=== PATIENT | female | born 1990 | race Asian ===

== ENCOUNTER 2020-10-17 21:20 | Emergency (ER) | payer OTHER ==
[2020-10-17] MEDS ORDERED: Sodium Chloride 0.9% 1000 ML 1,000 ML IV STA (21:52)
[2020-10-17] MEDS ORDERED: Sodium Chloride 0.9% 1000 ML 1,000 ML ONE (21:59)
[2020-10-17 22:29] LABS: Appearance SLIGHTLY CLOUDY (CLEAR); Bilirubin NEGATIVE (NEGATIVE); Blood NEGATIVE Ery/ul (0-5); Glucose NEGATIVE (NEGATIVE); Ketones NEGATIVE (NEGATIVE); Leukocyte Esterase NEGATIVE (NEGATIVE); Mucus SLIGHT /HPF (NEGATIVE); Nitrite NEGATIVE (NEGATIVE); Protein,Urine Dip NEGATIVE (Negative); Specific Gravity 1.019 (1.005-1.025); Urobilinogen NEGATIVE mg/dL (0-1); WBC 0-2 /HPF (0-5)
[2020-10-17 22:38] LABS: Absolute Neutrophil Ct (ANC) 8.94 (1.4-6.9); BASOPHIL % 0.3 % (0.0-0.4); Basophil (Absolute #) 0.04 (0-0.4); Eosinophil % 2.2 % (0.00-5.0); Eosinophil (Absolute #) 0.27 (0-0.5); Hematocrit 37.5 % (35-47); Hemoglobin 12.4 gm/dl (12.0-16.0); Lymphocyte (Absolute #) 2.39 (1.0-4.6); Lymphocytes % 19.3 % (24.0-44.0); Mean Cell Volume 86.6 fl (78-100); Mean Corpuscular Hemoglobin 28.6 pg (26-32); Mean Corpuscular Hgb Concent. 33.1 g/dl (32-36); Mean Platelet Volume 10.6 fl (7.5-11.0); Monocyte (Absolute #) 0.73 (0.0-1.3); Monocytes % 5.9 % (0.0-12.0); Neutrophil % 72.3 % (36.0-66.0); Platelet Count 237 K/mm3 (150-450); Red Blood Count 4.33 M/mm3 (4.1-5.4); Red Cell Distribution Width 12.6 % (11.5-14.0); White Blood Count 12.4 K/mm3 (4.0-10.5)
[2020-10-17 22:43] LABS: ALBUMIN 5.1 g/dL (3.5-5.0); ALKALINE PHOSPHATASE 51 U/L (38-126); ANION GAP 17.8 MEQ/L (5-15); BLOOD UREA NITROGEN 14 mg/dL (7-17); CHLORIDE 99 mmol/L (98-107); Carbon Dioxide 22 mmol/L (22-30); Creatinine 1 0.51 mg/dL (0.52-1.04); EST GLOMERULAR FILTRATION RATE > 60.0 ML/MIN; Glucose 87 mg/dL (74-106); Potassium 3.8 mmol/L (3.5-5.1); SGOT/AST 31 U/L (14-36); SGPT/ALT 28 U/L (0-35); SODIUM 135 mmol/L (137-145)
--- NOTE | 2020-10-17 23:14 | ERPHSYRPT ---
- History of Present Illness Time Seen by Provider: 10/17/20 21:30 Source: patient Exam Limitations: no limitations Patient Subjective Stated Complaint: "I'm having cramping and bloody discharge." Triage Nursing Assessment: Patient reported that she is roughly 14 weeks . This is her first . Her first OB appointment is the with Dr. Pendleton. The patient reported sharp right sided pelvic pain with spotting. Denied any pain today. Denied nausea, vomiting, or diarrhea. She reported having a right sided headache. pupils 3mm brisk direct consensual reaction to light. Symmetrical chest expansion. heart tones S1/S2 regular rate and rhythm. Lungs vesicular. Abdomen with normoactive bowel sounds. Abdomen non-distended non-tender without guarding. Physician History: 30 years old 1 para 0 at almost 14 weeks gestation per LMP presented in the ER with chief complaint of vaginal bleeding/spotting off and on since yesterday. Patient reports having right-sided pelvic pain yesterday dull aching to sharp moderate intensity which improved on its on after few hours. Does not have any pelvic or abdominal pain today. She noticed few small clots this afternoon with some bloody tinged discharge. Denies any pelvic cramping are low back pain. Does have increased urinary frequency but denies urgency or dysuria. Denies any recent fever or chills. Patient denies any recent sexual activity. Reports having ultrasound done 4 to 6 weeks ago but is not sure what it did show as it was done in [place] and now recently she moved here. She is going to follow-up with Dr. Pendleton next week. Timing/Duration: yesterday, resolved prior to arrival Activites at Onset: rest Sexual intercourse history: non-contributory Modifying Factors: Improves With: nothing Associated Symptoms: urinary frequency, , vaginal discharge Allergies/Adverse Reactions: No Known Drug Allergies Allergy (Unverified 10/17/20 21:36) Home Medications: No Reportable Medications [No Reported Medications] 10/17/20 [History] Hx Tetanus, Diphtheria Vaccination/Date Given: No Hx Influenza Vaccination/Date Given: Yes Travel Risk - International Travel Have you traveled outside of the country in past 3 weeks: No - Coronavirus Screening Are you exhibiting any of the following symptoms?: No Close contact with a COVID-19 positive Pt in past 14-21 Days: No - Vaccine Status Have you recieved a Covid-19 vaccination: No - Review of Systems Constitutional: No Symptoms Eyes: No Symptoms Ears, Nose, & Throat: No Symptoms Respiratory: No Symptoms Cardiac: No Symptoms Abdominal/Gastrointestinal: No Symptoms Genitourinary Symptoms: Vaginal Bleeding, Vaginal Discharge Musculoskeletal: No Symptoms Skin: No Symptoms Neurological: No Symptoms Psychological: No Symptoms Endocrine: No Symptoms Hematologic/Lymphatic: No Symptoms Immunological/Allergic: No Symptoms - Past Medical History Pertinent Past Medical History: No - Past Surgical History Past Surgical History: No - Social History Smoking Status: Never smoker Exposure to second hand smoke: No Drug Use: none Patient Lives Alone: No - Female History Hx Last Menstrual Period: 07/10/20 Hx Now: Yes - Nursing Vital Signs Nursing Vital Signs: Initial Vital Signs Temperature 98.4 F 10/17/20 21:23 Pulse Rate 98 H 10/17/20 21:23 Respiratory Rate 16 10/17/20 21:23 Blood Pressure 126/71 10/17/20 21:23 O2 Sat by Pulse Oximetry 100 10/17/20 21:23 Pain Scale Pain Intensity 0 - Physical Exam General Appearance: no apparent distress, alert Eye Exam: PERRL/EOMI, eyes nml inspection Ears, Nose, Throat Exam: normal ENT inspection, TMs normal, pharynx normal Neck Exam: normal inspection, non-tender, supple, full range of motion Respiratory Exam: normal breath sounds, lungs clear Cardiovascular Exam: regular rate/rhythm, normal heart sounds Gastrointestinal/Abdomen Exam: soft, normal bowel sounds, tenderness (Minimal suprapubic tenderness.), other (No right lower quadrant tenderness.), No distention, No guarding, No rebound Back Exam: normal inspection, normal range of motion Extremity Exam: normal inspection, normal range of motion Neurologic Exam: alert, oriented x 3, cooperative Skin Exam: normal color SpO2 Interpretation: normal SpO2: 98 O2 Delivery: Room Air Ordered Tests: Active Orders 24 hr Category Date Time Status IV Insertion STAT Care 10/17/20 21:52 Active OB >14 WKS 1st GESTATION [US] Stat Exams 10/17/20 21:53 Taken CBC W DIFF Stat Lab 10/17/20 22:15 Completed CMP Stat Lab 10/17/20 22:15 Completed UA W/RFX UR CULTURE Stat Lab 10/17/20 21:53 Completed Wet Prep Stat Lab 10/17/20 22:17 Received Medication Summary Discontinued Medications Generic Name Dose Route Start Last Admin Trade Name Armida PRN Reason Stop Dose Admin Sodium Chloride 1,000 mls @ 999 mls/hr 10/17/20 21:52 10/17/20 22:00 Sodium Chloride 0.9% 1000 Ml IV 10/17/20 22:52 999 mls/hr .Q1H1M STA Administration Sodium Chloride Confirm 10/17/20 21:59 Sodium Chloride 0.9% 1000 Ml Administered 10/17/20 22:00 Dose 1,000 mls @ ud .ROUTE .STK-MED ONE Lab/Rad Data: Laboratory Result Diagrams 10/17/20 22:15 10/17/20 22:15 Laboratory Results 10/17/20 10/17/20 10/17/20 Range/Units 22:15 22:15 21:53 WBC 12.4 H (4.0-10.5) K/mm3 RBC 4.33 (4.1-5.4) M/mm3 Hgb 12.4 (12.0-16.0) gm/dl Hct 37.5 (35-47) % MCV 86.6 (78-100) fl MCH 28.6 (26-32) pg MCHC 33.1 (32-36) g/dl RDW 12.6 (11.5-14.0) % Plt Count 237 (150-450) K/mm3 MPV 10.6 (7.5-11.0) fl Gran % 72.3 H (36.0-66.0) % Eos # (Auto) 0.27 (0-0.5) Absolute Lymphs (auto) 2.39 (1.0-4.6) Absolute Monos (auto) 0.73 (0.0-1.3) Lymphocytes % 19.3 L (24.0-44.0) % Monocytes % 5.9 (0.0-12.0) % Eosinophils % 2.2 (0.00-5.0) % Basophils % 0.3 (0.0-0.4) % Absolute Granulocytes 8.94 H (1.4-6.9) Basophils # 0.04 (0-0.4) Sodium 135 L (137-145) mmol/L Potassium 3.8 (3.5-5.1) mmol/L Chloride 99 (98-107) mmol/L Carbon Dioxide 22 (22-30) mmol/L Anion Gap 17.8 H (5-15) MEQ/L BUN 14 (7-17) mg/dL Creatinine 0.51 L (0.52-1.04) mg/dL Estimated GFR > 60.0 ML/MIN Glucose 87 (74-106) mg/dL Calcium 10.0 (8.4-10.2) mg/dL Total Bilirubin 0.20 (0.2-1.3) mg/dL AST 31 (14-36) U/L ALT 28 (0-35) U/L Alkaline Phosphatase 51 (38-126) U/L Serum Total Protein 9.0 H (6.3-8.2) g/dL Albumin 5.1 H (3.5-5.0) g/dL Urine Color YELLOW (YELLOW) Urine Appearance SLIGHTLY CLOUDY (CLEAR) Urine pH 8.0 (5-6) Ur Specific [place] 1.019 (1.005-1.025) Urine Protein NEGATIVE (Negative) Urine Ketones NEGATIVE (NEGATIVE) Urine Blood NEGATIVE (0-5) Pramod/ul Urine Nitrite NEGATIVE (NEGATIVE) Urine Bilirubin NEGATIVE (NEGATIVE) Urine Urobilinogen NEGATIVE (0-1) mg/dL Ur Leukocyte Esterase NEGATIVE (NEGATIVE) Urine WBC (Auto) 0-2 (0-5) /HPF Urine RBC (Auto) NONE (0-2) /HPF U Epithel Cells (Auto) NONE (FEW) /HPF Urine Mucus (Auto) SLIGHT (NEGATIVE) /HPF Urine Culture Reflexed NO (NO) Urine Glucose NEGATIVE (NEGATIVE) mg/dL - Progress Progress: improved Air Movement: good Progress Note: 10/17/20 23:12 She is given fluid bolus, on reevaluation feeling much better. She has a white count of 12, mildly elevated gap and no UTI. Type and screen O+ with negative antibody screen. Ultrasound showed single IUP with good heart tone and no perichorionic hemorrhage, placenta had good place and no other acute findings per preliminary report, official report is pending. Patient is not complaining of any pain on reevaluation. She is thoroughly counseled and recommended outpatient OB follow-up as scheduled. Discussed signs symptoms of worsening needing return to ER which she seemed understanding Blood Culture(s) Obtained: No Antibiotics given: No Counseled pt/family regarding: lab results, diagnosis, need for follow-up, rad results - Departure Departure Disposition: Home Clinical Impression: Vaginal bleeding affecting early Condition: Stable Critical Care Time: No Referrals: CRISTIN PENLDETON MD [Primary Care Provider] - Follow Up with PCP/3 days Instructions: Bleeding With (DC) Additional Instructions: Follow-up with your primary OB for reevaluation early next week. Drink plenty of fluids. Continue with vitamins. Return to ER for worsening bleeding, cramping, discharge, low back pain. Pelvic rest.
[2020-10-17 23:16] LABS: ABO TYPING O; Antibody Screen NEGATIVE (NEGATIVE); RH TYPING POSITIVE
[2020-10-17 23:25] LABS: Bacteria Moderate; Clue Cells Rare; Red Blood Cells None Seen; Trichomonas None Seen; White Blood Cells Moderate; Yeast None Seen
[2020-10-17 23:33] VITALS: BP 112/72; PULSE 68; O2SAT 99
[2020-10-17 23:56] LABS: CHLAMYDIA DNA NOT DETECTED (NEGATIVE); GC DNA Probe NOT DETECTED (NEGATIVE)
--- NOTE | 2020-10-18 07:48 | XRAY ---
Indication: Right-sided pain. Spotting. Two-dimensional OB ultrasound performed. Comparison: None There is a single intrauterine with mean crown-rump length 7.75 cm corresponding to 13 weeks 6 days. heart rate 173 BPM. No suspicious subchorionic fluid collection. Neither ovaries visualized. No suspicious adnexal mass or free fluid. BPD measures 2.74 cm corresponding to 14 weeks 6 days. HC measures 9.15 cm corresponding to 14 weeks 1 day. AC measures 7.67 cm corresponding to 14 weeks 1 day. FL measures 1.03 cm corresponding to 13 weeks 0 days. Impression: Single viable intrauterine with mean gestational age 14 weeks 0 days. Expected date confinement is April 17, 2021. No acute findings. Comment: Preliminary report was given.
== END 2020-10-17 23:26 | disposition home or self-care (01) ==
LOC: EDBD 21:20 → ED 21:20
DX: O20.9 Hemorrhage in early pregnancy, unspecified (principal); Z3A.14 14 weeks gestation of pregnancy
CPT/HCPCS: 36000; 36415; 76805; 80053; 81001; 85025; 86850; 86900; 86901; 87210; 87491; 87591; 96360; 99284

== ENCOUNTER 2021-04-02 08:34 | Inpatient (IN) | payer OTHER ==
[2021-04-02] MEDS ORDERED: Lactated Ringers 1,000 ML IV ONE ×3 (09:22→15:54)
[2021-04-02] MEDS ORDERED: OB EPIDURAL NAROPIN/SUFENTANIL IN NACL EPIDURAL PRN (09:33)
[2021-04-02] MEDS ORDERED: Ephedrine Sulfate 50 MG/ML IV PRN (09:33)
[2021-04-02] MEDS ORDERED: XYLOCAINE 1% HCL 20 ML MDV IJ PRN (09:34)
[2021-04-02] MEDS ORDERED: Zofran 4 MG/2 ML VIAL IV PRN (09:34)
[2021-04-02] MEDS ORDERED: PITOCIN 30 UNITS/ LR 500 ML 30 UNITS/500 ML PLAST..BAG IV SCH (10:00)
[2021-04-02 10:01] LABS: Hematocrit 38.4 % (35-47); Hemoglobin 12.8 gm/dl (12.0-16.0); Mean Cell Volume 90.6 fl (78-100); Mean Corpuscular Hemoglobin 30.2 pg (26-32); Mean Corpuscular Hgb Concent. 33.3 g/dl (32-36); Mean Platelet Volume 11.6 fl (7.5-11.0); Platelet Count 181 K/mm3 (150-450); Red Blood Count 4.24 M/mm3 (4.1-5.4); Red Cell Distribution Width 14.5 % (11.5-14.0)
[2021-04-02 10:06] LABS: White Blood Count 25.4 K/mm3 (4.0-10.5)
[2021-04-02 10:14] LABS: Amphetamine,Urine NEGATIVE (NEGATIVE); Barbiturate,Urine NEGATIVE (NEGATIVE); Benzodiazepine,Urine NEGATIVE (NEGATIVE); Cocaine,Urine NEGATIVE (NEGATIVE); Methadone,Urine NEGATIVE (NEGATIVE); Opiate,Urine NEGATIVE (NEGATIVE); PCP,Urine NEGATIVE (NEGATIVE); THC,Urine NEGATIVE (NEGATIVE)
[2021-04-02] MEDS: Lactated Ringers 1,000 ML IV ONE ×2 (10:24→10:25)
[2021-04-02 11:55] LABS: Appearance CLEAR (CLEAR); Bilirubin NEGATIVE (NEGATIVE); Blood SMALL Ery/ul (0-5); Glucose NEGATIVE (NEGATIVE); Ketones MODERATE (NEGATIVE); Leukocyte Esterase NEGATIVE (NEGATIVE); Mucus SLIGHT /HPF (NEGATIVE); Nitrite NEGATIVE (NEGATIVE); Protein,Urine Dip 100 (Negative); Specific Gravity 1.017 (1.005-1.025); Urobilinogen NEGATIVE mg/dL (0-1)
[2021-04-02 11:57] LABS: Bacteria NONE SEEN /HPF (NEGATIVE)
[2021-04-02] MEDS ORDERED: Pepcid 20 MG VIAL IV SCH (13:45)
[2021-04-02] MEDS ORDERED: SOD CITRATE-CITRIC ACID SOLN PO SCH (13:45)
[2021-04-02] MEDS ORDERED: Reglan 10 MG/2 ML IV SCH (13:45)
[2021-04-02 13:50] LABS: INR 0.89 (0.8-3.0); PROTIME 10.5 SECONDS (9.4-12.5)
[2021-04-02 13:52] LABS: PTT 28.7 SECONDS (25.1-36.5)
[2021-04-02] MEDS ORDERED: CEFAZOLIN 2 GM-D5W BAG** 2 GM/50 ML ML IV SCH (14:00)
[2021-04-02] MEDS ORDERED: XYLOCAINE 2%/Epi 1:200000 20ML VIAL MPF ONE (14:23)
[2021-04-02] MEDS ORDERED: Lactated Ringers 2,000 ML IV ONE (14:24)
[2021-04-02] MEDS ORDERED: PHENYLEPHRINE HCL ONE (14:37)
[2021-04-02] MEDS ORDERED: Pitocin 10 UNITS/ML ONE ×2 (14:48→14:55)
[2021-04-02] MEDS ORDERED: Astramorph-Pf 5 MG/10 ML ONE (14:55)
[2021-04-02] MEDS ORDERED: Naropin 0.5% 30 ML VIAL ONE (15:15)
[2021-04-02] MEDS ORDERED: Marcaine 0.5%/Epinephrine 10 ML ONE (15:16)
[2021-04-02] MEDS ORDERED: STERILE WATER FOR INJECTION IV SCH (16:00)
[2021-04-02] MEDS ORDERED: OMNIPEN IV SCH (16:00)
[2021-04-02] MEDS ORDERED: GENTAMICIN IV SCH (16:00)
[2021-04-02] MEDS ORDERED: MOTRIN 600 MG PO PRN (16:19)
[2021-04-02] MEDS ORDERED: Lactated Ringers 1,000 ML IV SCH (16:30)
[2021-04-02 16:44] LABS: INFLUENZA A NEGATIVE (NEGATIVE); INFLUENZA B NEGATIVE (NEGATIVE); RESPIRATORY SYNCTIAL VIRUS NEGATIVE (Negative); SARS-CoV-2 Xpert Express NEGATIVE (NEGATIVE)
[2021-04-02] MEDS ORDERED: MOTRIN 400 MG PO PRN (18:30)
[2021-04-02] MEDS ORDERED: CORTISONE 1% CREAM TP PRN (18:30)
[2021-04-02] MEDS ORDERED: Mylicon 80MG PO PRN (18:30)
[2021-04-02] MEDS ORDERED: NORCO 5/325 MG PO PRN (18:30)
[2021-04-02] MEDS ORDERED: Dextrose 5%-Lr IV Solution 1000 ML 1,000 ML IV SCH (18:30)
[2021-04-02] MEDS ORDERED: Anucort-HC SUPPOSITORY PR PRN (18:30)
[2021-04-02] MEDS ORDERED: BENADRYL 50 MG/ML IV PRN (18:33)
[2021-04-02] MEDS ORDERED: HOLD NARCOTIC ANALGESICS AND SEDATIVES X24 HR MC PRN (18:33)
[2021-04-02] MEDS ORDERED: Nubain 10 MG/ML IV PRN (18:33)
[2021-04-02] MEDS ORDERED: Narcan 0.4 MG/ML IV PRN (18:33)
[2021-04-02] MEDS ORDERED: MORPHINE SULFATE 2 MG INJ IV PRN (18:33)
[2021-04-02] MEDS ORDERED: PERCOCET TABLET 5/325MG PO PRN (18:33)
[2021-04-02] MEDS ORDERED: DEMEROL 50 MG IV PRN (18:33)
[2021-04-02] MEDS: Unasyn 3 GM Vial*** 3 G in Sodium Chloride 100ML MINI-BAG PLUS 100 ML IV SCH ×2 (18:46→23:49)
[2021-04-02] MEDS: Colace 100 MG PO SCH (21:55)
[2021-04-02 22:17] LABS: ABO TYPING O; RH TYPING POSITIVE
[2021-04-02 22:18] LABS: Antibody Screen NEGATIVE (NEGATIVE)
[2021-04-03] MEDS: TYLENOL 325 MG PO PRN ×3 (03:55→23:52)
[2021-04-03] MEDS: Unasyn 3 GM Vial*** 3 G in Sodium Chloride 100ML MINI-BAG PLUS 100 ML IV SCH ×4 (04:55→23:12)
[2021-04-03 06:42] LABS: Hematocrit 31.2 % (35-47); Hemoglobin 10.2 gm/dl (12.0-16.0); Mean Cell Volume 92.9 fl (78-100); Mean Corpuscular Hemoglobin 30.4 pg (26-32); Mean Corpuscular Hgb Concent. 32.7 g/dl (32-36); Mean Platelet Volume 11.9 fl (7.5-11.0); Platelet Count 135 K/mm3 (150-450); Red Blood Count 3.36 M/mm3 (4.1-5.4); Red Cell Distribution Width 14.7 % (11.5-14.0); White Blood Count 19.2 K/mm3 (4.0-10.5)
[2021-04-03 08:07] LABS: BAND 2 % (0.0-2.0); Lymphocytes 12 % (24-44); Monocyte 6 % (0.0-12.0); Neutrophils 80 % (36.0-66.0); Total Cells Counted 100
--- NOTE | 2021-04-03 08:07 | XRAY ---
Indication: Fever. Pneumonia. Comparison: None Portable chest is clear. Heart and mediastinal structures within normal limits. Bony thorax intact. Impression: Nonacute chest. Comment: Preliminary interpretation made by [facility]. No critical discrepancy.
[2021-04-03 08:08] LABS: Platelet Estimate NORMAL (NORMAL)
[2021-04-03] MEDS: Colace 100 MG PO SCH ×2 (09:48→22:09)
[2021-04-03] MEDS: FERREX 150 PO SCH (09:48)
--- NOTE | 2021-04-03 10:21 | PCM.NOTE ---
Date and Time: 04/03/21 1019 Subjective Assessment: pain is well controlled, bleeding is scant. patient is ambulatory and tolerating po. has not ran any fever overnight. Objective Exam General Appearance: no apparent distress, alert Skin Exam: normal color, warm, dry Respiratory Exam: normal breath sounds, lungs clear, No respiratory distress Cardiovascular Exam: regular rate/rhythm, normal heart sounds Gastrointestinal/Abdomen Exam: soft, other (incision clean, dry, intact and well approximated), No tenderness, No mass Extremity Exam: normal inspection, normal range of motion OBJECTIVE DATA Vital Signs: Vital Signs - 24 hr Temp Pulse Resp BP BP Pulse Ox 04/03/21 04:00 98.6 F 101 H 20 127/75 04/03/21 00:42 98.9 F 20 04/02/21 23:45 98.5 F 110 H 20 142/67 04/02/21 20:00 99 F 113 H 20 131/65 98 04/02/21 18:30 99.1 F 109 H 18 126/65 95 04/02/21 18:00 99.1 F 113 H 16 130/69 97 04/02/21 17:30 99.1 F 122 H 18 131/74 96 04/02/21 17:15 99.1 F 114 H 18 129/65 97 04/02/21 16:45 114 H 16 125/56 98 04/02/21 16:30 101.7 F 123 H 18 125/56 97 04/02/21 14:30 101.7 F 113 H 16 97 04/02/21 14:22 101.0 F 107 H 20 136/91 100 04/02/21 14:15 101.7 F 139 H 16 142/75 97 04/02/21 14:06 101.0 F 107 H 20 127/69 100 04/02/21 13:30 100.3 F 107 H 16 127/69 97 04/02/21 13:15 100.3 F 109 H 18 128/69 97 04/02/21 13:00 100.3 F 101 H 16 138/74 04/02/21 12:30 100.3 F 108 H 18 136/91 04/02/21 12:22 99.1 F 108 H 20 136/91 100 04/02/21 12:15 99.1 F 114 H 16 143/86 97 04/02/21 12:00 99.1 F 100 H 16 150/67 100 04/02/21 11:30 99.1 F 101 H 18 106/55 100 04/02/21 11:00 99.1 F 96 H 18 109/49 100 04/02/21 10:30 98.6 F 105 H 18 134/77 97 Pain Assessment - Last Documented Pain Intensity [Bilateral 0 Lower] Pain Intensity 6 Pain Scale Used 0-10 Pain Scale Intake and Output: Intake & Output 03/31/21 04/01/21 04/02/21 04/03/21 11:59 11:59 11:59 11:59 Intake Total 6500 Output Total 7200 Balance -700 Weight 62.596 kg 62.596 kg Lab Results: Lab Results-Last 24 Hours 04/02/21 04/02/21 04/02/21 Range/Units 09:50 10:00 11:30 WBC (4.0-10.5) K/mm3 RBC (4.1-5.4) M/mm3 Hgb (12.0-16.0) gm/dl Hct (35-47) % MCV (78-100) fl MCH (26-32) pg MCHC (32-36) g/dl RDW (11.5-14.0) % Plt Count (150-450) K/mm3 MPV (7.5-11.0) fl Segmented Neutrophils (36.0-66.0) % Band Neutrophils (0.0-2.0) % Lymphocytes (Manual) (24-44) % Monocytes (Manual) (0.0-12.0) % Platelet Estimate (NORMAL) RBC Morphology PT 10.5 (9.4-12.5) SECONDS INR 0.89 (0.8-3.0) APTT 28.7 (25.1-36.5) SECONDS POC Glucometer (74 to 106) mg/dL Urine Color YELLOW (YELLOW) Urine Appearance CLEAR (CLEAR) Urine pH 7.0 (5-6) Ur Specific [place] 1.017 (1.005-1.025) Urine Protein 100 (Negative) Urine Ketones MODERATE (NEGATIVE) Urine Blood SMALL (0-5) Pramod/ul Urine Nitrite NEGATIVE (NEGATIVE) Urine Bilirubin NEGATIVE (NEGATIVE) Urine Urobilinogen NEGATIVE (0-1) mg/dL Ur Leukocyte Esterase NEGATIVE (NEGATIVE) Urine WBC (Auto) 3-5 (0-5) /HPF Urine RBC (Auto) 16-25 (0-2) /HPF U Epithel Cells (Auto) NONE (FEW) /HPF Urine Bacteria (Auto) NONE SEEN (NEGATIVE) /HPF Urine Mucus (Auto) SLIGHT (NEGATIVE) /HPF Urine Culture Reflexed YES (NO) Urine Glucose NEGATIVE (NEGATIVE) mg/dL Influenza Type A Ag (NEGATIVE) Influenza Type B Ag (NEGATIVE) RSV (PCR) (Negative) SARS-CoV-2 (PCR) (NEGATIVE) Slides for Path Review ABO Group Rh Factor Antibody Screen (NEGATIVE) 04/02/21 04/02/21 04/02/21 Range/Units 14:14 15:10 16:00 WBC (4.0-10.5) K/mm3 RBC (4.1-5.4) M/mm3 Hgb (12.0-16.0) gm/dl Hct (35-47) % MCV (78-100) fl MCH (26-32) pg MCHC (32-36) g/dl RDW (11.5-14.0) % Plt Count (150-450) K/mm3 MPV (7.5-11.0) fl Segmented Neutrophils (36.0-66.0) % Band Neutrophils (0.0-2.0) % Lymphocytes (Manual) (24-44) % Monocytes (Manual) (0.0-12.0) % Platelet Estimate (NORMAL) RBC Morphology PT (9.4-12.5) SECONDS INR (0.8-3.0) APTT (25.1-36.5) SECONDS POC Glucometer 117 H (74 to 106) mg/dL Urine Color (YELLOW) Urine Appearance (CLEAR) Urine pH (5-6) Ur Specific [place] (1.005-1.025) Urine Protein (Negative) Urine Ketones (NEGATIVE) Urine Blood (0-5) Pramod/ul Urine Nitrite (NEGATIVE) Urine Bilirubin (NEGATIVE) Urine Urobilinogen (0-1) mg/dL Ur Leukocyte Esterase (NEGATIVE) Urine WBC (Auto) (0-5) /HPF Urine RBC (Auto) (0-2) /HPF U Epithel Cells (Auto) (FEW) /HPF Urine Bacteria (Auto) (NEGATIVE) /HPF Urine Mucus (Auto) (NEGATIVE) /HPF Urine Culture Reflexed (NO) Urine Glucose (NEGATIVE) mg/dL Influenza Type A Ag NEGATIVE (NEGATIVE) Influenza Type B Ag NEGATIVE (NEGATIVE) RSV (PCR) NEGATIVE (Negative) SARS-CoV-2 (PCR) NEGATIVE (NEGATIVE) Slides for Path Review ABO Group O Rh Factor POSITIVE Antibody Screen NEGATIVE (NEGATIVE) 04/03/21 Range/Units 06:10 WBC 19.2 H (4.0-10.5) K/mm3 RBC 3.36 L (4.1-5.4) M/mm3 Hgb 10.2 L D (12.0-16.0) gm/dl Hct 31.2 L (35-47) % MCV 92.9 (78-100) fl MCH 30.4 (26-32) pg MCHC 32.7 (32-36) g/dl RDW 14.7 H (11.5-14.0) % Plt Count 135 L (150-450) K/mm3 MPV 11.9 H (7.5-11.0) fl Segmented Neutrophils 80 H (36.0-66.0) % Band Neutrophils 2 (0.0-2.0) % Lymphocytes (Manual) 12 L (24-44) % Monocytes (Manual) 6 (0.0-12.0) % Platelet Estimate NORMAL (NORMAL) RBC Morphology NORMAL PT (9.4-12.5) SECONDS INR (0.8-3.0) APTT (25.1-36.5) SECONDS POC Glucometer (74 to 106) mg/dL Urine Color (YELLOW) Urine Appearance (CLEAR) Urine pH (5-6) Ur Specific [place] (1.005-1.025) Urine Protein (Negative) Urine Ketones (NEGATIVE) Urine Blood (0-5) Pramod/ul Urine Nitrite (NEGATIVE) Urine Bilirubin (NEGATIVE) Urine Urobilinogen (0-1) mg/dL Ur Leukocyte Esterase (NEGATIVE) Urine WBC (Auto) (0-5) /HPF Urine RBC (Auto) (0-2) /HPF U Epithel Cells (Auto) (FEW) /HPF Urine Bacteria (Auto) (NEGATIVE) /HPF Urine Mucus (Auto) (NEGATIVE) /HPF Urine Culture Reflexed (NO) Urine Glucose (NEGATIVE) mg/dL Influenza Type A Ag (NEGATIVE) Influenza Type B Ag (NEGATIVE) RSV (PCR) (Negative) SARS-CoV-2 (PCR) (NEGATIVE) Slides for Path Review ABO Group Rh Factor Antibody Screen (NEGATIVE) Radiology Exams: Radiology Procedures Category Date Time Status CHEST 1 VIEW (PORTABLE) Stat Exams 04/02/21 16:59 Completed Multi-Disciplinary Progress Notes: Multi-Disciplinary Progress Notes 04/02/21 14:53 (created 04/02/21 16:53) Respiratory Note by Stephanie Boucher The baby was born at 1453. Baby limp and dusky upon . Baby is breathing. HR is good. at . Baby is stimulated dried and given blowby O2. baby stil limp baby given cpap via bernadette t with O2. Baby continues to be limp. HR continues to remain stable at 214. Baby given PPV.. for approximately 5 minutes and patient begins to move around a pink up some. Patient begins to have a little more muscle tone while IV is trying to be started by RN and CEMENT TESTER ASSISTANT. Baby continues to be given PPV via Bernadette T. after approximately 20 minutes the baby is much more active and looking around and pinking up along with better muscle tone. Baby taken to nursery and is looking around color much better at this time. Switched baby to 2lpm per NC with FiO2 28%. HR 186 RR 70 Patient decreased to 21% FiO2 and 2lpm HR 153 O2 sat 94%. . Initialized on 04/02/21 16:53 - END OF NOTE Assessment/Plan (1) delivery delivered Current Visit: Yes Status: Acute Code(s): O82 - ENCOUNTER FOR DELIVERY WITHOUT INDICATION (2) Fever of unknown origin (FUO) Current Visit: Yes Status: Acute Assessment & Plan: covid and flu negative, u/a and chest xray are clear. blood and urine cultures are pending. continue unasyn emperically, wbc trending down and patient appears well and afebrile
[2021-04-04] MEDS: TYLENOL 325 MG PO PRN (05:54)
[2021-04-04 07:10] LABS: Hematocrit 30.9 % (35-47); Hemoglobin 9.8 gm/dl (12.0-16.0); Mean Cell Volume 93.9 fl (78-100); Mean Corpuscular Hemoglobin 29.8 pg (26-32); Mean Corpuscular Hgb Concent. 31.7 g/dl (32-36); Mean Platelet Volume 10.9 fl (7.5-11.0); Platelet Count 166 K/mm3 (150-450); Red Blood Count 3.29 M/mm3 (4.1-5.4); Red Cell Distribution Width 14.9 % (11.5-14.0); White Blood Count 18.5 K/mm3 (4.0-10.5)
[2021-04-04 07:27] LABS: ANION GAP 9.2 MEQ/L (5-15); BLOOD UREA NITROGEN 8 mg/dL (7-17); CHLORIDE 106 mmol/L (98-107); Calcium 8.4 mg/dL (8.4-10.2); Carbon Dioxide 23 mmol/L (22-30); Creatinine 1 0.54 mg/dL (0.52-1.04); EST GLOMERULAR FILTRATION RATE > 60.0 ML/MIN; Glucose 71 mg/dL (74-106); Potassium 3.8 mmol/L (3.5-5.1); SODIUM 134 mmol/L (137-145)
[2021-04-04 08:36] LABS: ANISOCYTOSIS 1+; BAND 1 % (0.0-2.0); Eosinophil 1 % (0.00-3.0); Lymphocytes 15 % (24-44); Monocyte 5 % (0.0-12.0); Neutrophils 78 % (36.0-66.0); Platelet Estimate NORMAL (NORMAL); Total Cells Counted 100
--- NOTE | 2021-04-04 09:25 | PCM.DS ---
Discharge Summary Date of Admission: 04/02/21 08:34 Admitting Physician: CRISTIN PENDLETON Consults: Consults on Case 04/02/21 13:40 Notify Physician OF ADMISSION 04/02/21 18:33 Notify Anesthesia Provider PRN Primary Care Provider: CRISTIN PENDLETON Allergies Allergies No Known Drug Allergies Allergy (Unverified 12/09/20 11:12) Hospital Summary - Hospital Course Hospital Course: patient had primary on 04/02 with nonreassuing heart tones, developed a high fever postop of unknown origin. chest xray and ua were negative. blood and urine cultures negative. flu and covid swab negative. she has been afebrile since after surgery. tolerating po, was on unasyn, wbc initially 25,000 trending down as well. patient has done great post-op with mild lochia, tolerating po and ambulating with no difficulty. - Vitals & Intake/Output Vital Signs: Vital Signs Temperature 98.1 F 04/03/21 23:18 Pulse Rate 93 H 04/03/21 23:18 Respiratory Rate 18 04/03/21 23:18 Blood Pressure 116/64 04/03/21 23:18 O2 Sat by Pulse Oximetry 98 04/02/21 20:00 Intake & Output: Intake & Output 04/01/21 04/02/21 04/03/21 04/04/21 11:59 11:59 11:59 11:59 Intake Total 6500 3600 Output Total 7200 Balance -700 3600 Weight 62.596 kg 62.596 kg - Lab Result Diagrams: 04/04/21 06:44 04/04/21 06:44 Lab Results-Last 24 Hrs: Lab Results-Last 24 Hours 04/04/21 04/04/21 Range/Units 06:44 06:44 WBC 18.5 H (4.0-10.5) K/mm3 RBC 3.29 L (4.1-5.4) M/mm3 Hgb 9.8 L (12.0-16.0) gm/dl Hct 30.9 L (35-47) % MCV 93.9 (78-100) fl MCH 29.8 (26-32) pg MCHC 31.7 L (32-36) g/dl RDW 14.9 H (11.5-14.0) % Plt Count 166 (150-450) K/mm3 MPV 10.9 (7.5-11.0) fl Segmented Neutrophils 78 H (36.0-66.0) % Band Neutrophils 1 (0.0-2.0) % Lymphocytes (Manual) 15 L (24-44) % Monocytes (Manual) 5 (0.0-12.0) % Eosinophils (Manual) 1 (0.00-3.0) % Platelet Estimate NORMAL (NORMAL) RBC Morphology ABNORMAL Anisocytosis 1+ Sodium 134 L (137-145) mmol/L Potassium 3.8 (3.5-5.1) mmol/L Chloride 106 (98-107) mmol/L Carbon Dioxide 23 (22-30) mmol/L Anion Gap 9.2 (5-15) MEQ/L BUN 8 (7-17) mg/dL Creatinine 0.54 (0.52-1.04) mg/dL Estimated GFR > 60.0 ML/MIN Glucose 71 L (74-106) mg/dL Calcium 8.4 (8.4-10.2) mg/dL Micro Results-Entire Visit: Microbiology 04/02/21 16:10 Blood Culture - Preliminary Blood NO GROWTH TO DATE 04/02/21 16:05 Blood Culture - Preliminary Blood NO GROWTH TO DATE 04/02/21 11:30 Urine Culture - Preliminary Urine, Catheterized NO GROWTH TO DATE - Radiology Exams Ordered Rad Exams-Entire Visit: Radiology Procedures Category Date Time Status CHEST 1 VIEW (PORTABLE) Stat Exams 04/02/21 16:59 Completed - Procedures and Test Procedures and Tests throughout Hospitalization: Therapy Orders & Screens 04/02/21 16:51 Standby STAT Comment: Diagnosis: Labor Discharge Exam General Appearance: no apparent distress Neurologic Exam: alert, oriented x 3 Respiratory Exam: normal breath sounds, lungs clear, No respiratory distress Cardiovascular Exam: regular rate/rhythm Gastrointestinal/Abdomen Exam: soft, other (incision clean, dry, intact, well approximated.) Extremity Exam: normal inspection, normal range of motion Skin Exam: normal color, warm, dry Final Diagnosis/Problem List - Final Discharge Diagnosis/Problem (1) delivery delivered Current Visit: Yes Status: Acute Code(s): O82 - ENCOUNTER FOR DELIVERY WITHOUT INDICATION (2) Fever of unknown origin (FUO) Current Visit: Yes Status: Acute Assessment & Plan: home on po augmentin, Dr Barrera from NICU requested repeat covid swab prior to discharge so ordered per his request. no signs of chorio at delivery, pathology from placenta is pending. cultures of blood and urine negative. - Discharge Disposition: Home, Self-Care Condition: Stable Prescriptions: New Amox Tr/Potass Clav. 500 mg [Augmentin 500-125 Tablet] 1 each PO TID #21 tablet Hydrocodone/Acetaminophen [Hydrocodone-Acetamin 5-325 mg] 1 tab PO Q6HPRN PRN #28 tablet MDD 4 PRN Reason: Pain Follow up with: CRISTIN PENDLETON MD [Primary Care Provider] - 1 Week
[2021-04-04] MEDS: FERREX 150 PO SCH (10:52)
[2021-04-04] MEDS: Colace 100 MG PO SCH (10:52)
[2021-04-04 11:05] VITALS: BP 134/60; PULSE 92; O2SAT 99
[2021-04-04 11:27] LABS: INFLUENZA A NEGATIVE (NEGATIVE); INFLUENZA B NEGATIVE (NEGATIVE); RESPIRATORY SYNCTIAL VIRUS NEGATIVE (Negative); SARS-CoV-2 Xpert Express NEGATIVE (NEGATIVE)
--- NOTE | 2021-04-05 10:51 | OP ---
SURGERY DATE/TIME: 04/02/2021 1433 PREOPERATIVE DIAGNOSES: 1) Term intrauterine in active labor. 2) Non-reassuring heart tones. POSTOPERATIVE DIAGNOSES: 1) Term intrauterine in active labor. 2) Non-reassuring heart tones. PROCEDURE: Low transverse section. SURGEON: Herbert Gonzalez M.D. ANESTHESIA: Epidural by Dany Rosa CRNA. ESTIMATED BLOOD LOSS: 300 ml. URINE OUTPUT: 100 cc clear straw-colored urine. SPECIMEN: Placenta was sent for pathology. DESCRIPTION OF PROCEDURE: After informed written consent was obtained, the patient was taken to the OR. She had a previously placed laboring epidural dosed with anesthesia to go to the OR. The patient had developed increased baseline with maternal fever and persistent late decelerations. Therefore decision was then made to go to primary section. She was prepped and draped in usual sterile fashion. A low transverse skin incision was made by knife and carried down through the subcutaneous fat to the level of the fascia. The fascia was nicked on both sides of the midline and extended horizontal using curved Jensen scissors. The superior free edge of the fascia was grasped with Nilson clamps and the underlying rectus muscles were dissected free. The same was repeated inferiorly. The peritoneal cavity was opened and extended in horizontal fashion and a bladder flap was created and reflected over the lower uterine segment. Horizontal uterine incision was made by knife and carried down to the level of the amniotic membranes which were carefully artificially ruptured. A male infant was delivered from the vertex presentation with a nuchal cord x1. The cord was clamped and cut. He did make some minimal respiratory effort at delivery but had poor tone and was immediately handed off to the awaiting nursery team after the cord was clamped and cut. The placenta was manually extracted and the uterus was exteriorized. The uterine cavity was sponge curetted clean with a lap sponge. The uterine incision was closed with #1 chromic in running locked fashion with good closure and good hemostasis. Posterior cul-de-sac was wiped free of any blood and clot with moist lap sponge and then the uterus was returned to the peritoneal cavity. The lateral gutters were wiped free of blood and clot and the uterus inspected and noted to have good closure and good hemostasis once again after returned to the peritoneal cavity. The fascia was closed with 0 Vicryl in a running fashion. Good closure was achieved. The subcutaneous fat was irrigated with warm, sterile saline and any areas of bleeding were cauterized with electrocautery and then the skin layer was closed with 4-0 undyed Vicryl in a running subcuticular fashion. Steri-Strips and occlusive dressing were placed over the incision. Anesthesia performed tap blocks and the patient was transferred to the recovery room in good condition.
== END 2021-04-04 13:45 | disposition home or self-care (01) | DRG 788 ==
LOC: OB 08:34 → OBSVTOIN 08:34 → MED SURG 18:19
PROVIDERS: ADMIT Family Medicine; ATTEND Family Medicine
PROC: 10D00Z1 Extraction of Products of Conception, Low, Open Approach (ICD-10-PCS; principal; 2021-04-02)
DX: O76 Abnormality in fetal heart rate and rhythm complicating labor and delivery (principal); Z37.0 Single live birth; Z3A.38 38 weeks gestation of pregnancy; R50.9 Fever, unspecified; Z20.828 Contact with and (suspected) exposure to other viral communicable diseases
CPT/HCPCS: 0241U; 36415; 64488; 71045; 76937; 76942; 80048; 80307; 81001; 82947; 84112; 85025; 85027; 85610; 85730; 86850; 86900; 86901; 87040; 87086; 88307; 94799; J0295; J2274; J2370; J2590; J2795; A9270-GY

== ENCOUNTER 2021-04-05 09:36 | Inpatient (IN) | payer OTHER ==
[2021-04-05] MEDS ORDERED: Sodium Chloride 0.9% 1000 ML 1,000 ML IV STA (10:39)
[2021-04-05] MEDS ORDERED: MORPHINE SULFATE 4 MG INJ IV ONE (10:43)
[2021-04-05 10:57] LABS: Hematocrit 36.8 % (35-47); Hemoglobin 11.8 gm/dl (12.0-16.0); Mean Cell Volume 92.2 fl (78-100); Mean Corpuscular Hemoglobin 29.6 pg (26-32); Mean Corpuscular Hgb Concent. 32.1 g/dl (32-36); Mean Platelet Volume 11.3 fl (7.5-11.0); Platelet Count 251 K/mm3 (150-450); Red Blood Count 3.99 M/mm3 (4.1-5.4); Red Cell Distribution Width 14.7 % (11.5-14.0); White Blood Count 18.8 K/mm3 (4.0-10.5)
[2021-04-05] MEDS ORDERED: MORPHINE SULFATE 4 MG INJ ONE (10:59)
[2021-04-05] MEDS ORDERED: Zofran 4 MG/2 ML VIAL ONE (10:59)
[2021-04-05] MEDS ORDERED: Sodium Chloride 0.9% 1000 ML 1,000 ML ONE (10:59)
--- NOTE | 2021-04-05 11:00 | ERPHSYRPT ---
- History of Present Illness Time Seen by Provider: 04/05/21 10:00 Source: patient Exam Limitations: no limitations Patient Subjective Stated Complaint: fever Triage Nursing Assessment: Patient brought back to ED via w/c and transfeerd self to bed. Patient A+O X3. Patient's skin flushed, warm and dry. Patient had c section on 04/02/2021. Patient had low grade fever prior to getting epidural. Patient then spiked to 104.6 and baby was taken via due to distress on baby. Patient was released yesterday around 1400 and started having fever of 102.1 around 1500. Patient's temp has been elevating all night. Patient complains of lower right sided abdominal pain where c section incision is. Incison noted to be steri stripped. No redness or drainage noted. Physician History: Patient is a 31-year-old female postop day 3 status post discharge yesterday. Patient states while in the hospital she spiked a fever. Patient had a complete work-up done at that time. Work-up including blood cultures resu lted as negative. Patient had a leukocytosis of 25,000. Leukocytosis was trending downward at time of discharge. Patient was put on antibiotics empirically. However the course of the past 24 hours since discharge from the hospital patient spiked fever again. Patient became concerned and came to our ED for evaluation. Patient complains of pain near the incision site. However the incision site appears to be healing well. The pain is diffuse and involving the area just north of the umbilicus. She does have some tenderness the right lower quadrant as well. Symptoms are constant. Symptoms are moderate in intensity. Patient has been taking [place] for pain control which has been somewhat helpful. No trauma. Patient voices no other complaints or concerns at this time. Timing/Duration: day(s) (3 days) Fever Severity: moderate Fever Therapy FLOWER SHOP MANAGER: none Associated Symptoms: denies symptoms Allergies/Adverse Reactions: No Known Drug Allergies Allergy (Verified 04/05/21 09:46) Hx Tetanus, Diphtheria Vaccination/Date Given: No Hx Influenza Vaccination/Date Given: Yes Immunizations Up to Date: Yes Travel Risk - International Travel Have you traveled outside of the country in past 3 weeks: No - Coronavirus Screening Are you exhibiting any of the following symptoms?: No Close contact with a COVID-19 positive Pt in past 14-21 Days: No - Vaccine Status Have you recieved a Covid-19 vaccination: Yes 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 - Vaccination Dates Date of 2cond Vaccination (if applicable): December 30, 2020 - Review of Systems Constitutional: No Symptoms, No Fever, No Chills Eyes: No Symptoms Ears, Nose, & Throat: No Symptoms Respiratory: No Symptoms, No Cough, No Dyspnea Cardiac: No Symptoms, No Chest Pain, No Edema, No Syncope Abdominal/Gastrointestinal: No Symptoms, No Abdominal Pain, No Nausea, No Vomiting, No Diarrhea Genitourinary Symptoms: No Symptoms, No Dysuria Musculoskeletal: No Symptoms, No Back Pain, No Neck Pain Skin: No Symptoms, No Rash Neurological: No Symptoms, No Dizziness, No Focal Weakness, No Sensory Changes Psychological: No Symptoms Endocrine: No Symptoms Hematologic/Lymphatic: No Symptoms Immunological/Allergic: No Symptoms All Other Systems: Reviewed and Negative - Past Medical History Pertinent Past Medical History: No - Past Surgical History Past Surgical History: Yes Female Surgical History: Section - Social History Smoking Status: Never smoker Exposure to second hand smoke: No Drug Use: none Patient Lives Alone: No - Female History Hx Now: No - Nursing Vital Signs Nursing Vital Signs: Initial Vital Signs Temperature 102.3 F 04/05/21 09:47 Pulse Rate 115 H 04/05/21 09:47 Respiratory Rate 18 04/05/21 09:47 Blood Pressure 155/77 04/05/21 09:47 O2 Sat by Pulse Oximetry 99 04/05/21 09:47 Pain Scale Pain Intensity 3 - Physical Exam General Appearance: no apparent distress, alert Eye Exam: PERRL/EOMI ENT Exam: normal ENT inspection, no apparent trauma, hearing grossly normal, TMs normal, pharynx normal, No pharyngeal erythema, No tonsillar exudate Neck Exam: supple, full range of motion, trachea midline, No meningismus Respiratory Exam: normal breath sounds, lungs clear, no respiratory distress, no accessory muscle use, wheezing, No decreased breath sounds Cardiovascular/Chest Exam: normal heart sounds, regular rate/rhythm, normal peripheral pulses, No murmur, No edema Gastrointestinal/Abdominal Exam: soft, non tender, no distention, guarding (Pain in the general area of the surgical incision. Surgical incision appears to be healing well. No drainage. 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 No change from [id number].) Ordered Tests: Active Orders 24 hr Category Date Time Status Assistant Golf Professional STAT Care 04/05/21 10:40 Active IV Insertion STAT Care 04/05/21 10:39 Active Pulse Oximetry (ED) STAT Care 04/05/21 10:39 Active cath [Cath for Specimen-Straight] STAT Care 04/05/21 12:01 Active ABDOMEN AND PELVIS W CONTRAST [CT] Stat Exams 04/05/21 10:39 Completed CHEST 1 VIEW (PORTABLE) Stat Exams 04/05/21 10:39 Completed BLOOD CULTURE Stat Lab 04/05/21 10:55 Received CBC W DIFF Stat Lab 04/05/21 10:19 Completed CMP Stat Lab 04/05/21 10:19 Completed Lactic Acid Stat Lab 04/05/21 10:19 Completed Manual Differential NC Stat Lab 04/05/21 10:19 Completed TSH [TSH, 3RD Generation] Stat Lab 04/05/21 10:19 Completed UA W/RFX UR CULTURE Stat Lab 04/05/21 12:01 Completed Transfer Order Routine Transfer 04/05/21 Ordered Medication Summary Discontinued Medications Generic Name Dose Route Start Last Admin Trade Name Maxxq PRN Reason Stop Dose Admin Sodium Chloride 1,000 mls @ 999 mls/hr 04/05/21 10:39 04/05/21 12:48 Sodium Chloride 0.9% 1000 Ml IV 04/05/21 11:39 Infused .Q1H1M STA Infusion Sodium Chloride Confirm 04/05/21 10:59 Sodium Chloride 0.9% 1000 Ml Administered 04/05/21 11:00 Dose 1,000 mls @ ud .ROUTE .STK-MED ONE Morphine Sulfate 4 mg 04/05/21 10:43 04/05/21 11:35 Morphine Sulfate 4 Mg/Ml Injection IV 04/05/21 10:44 4 mg STAT ONE Administration Morphine Sulfate Confirm 04/05/21 10:59 Morphine Sulfate 4 Mg/Ml Injection Administered 04/05/21 11:00 Dose 4 mg .ROUTE .STK-MED ONE Ondansetron HCl 4 mg 04/05/21 11:01 04/05/21 11:35 Ondansetron Hcl 4 Mg/2 Ml Vial IV 04/05/21 11:02 4 mg STAT ONE Administration Ondansetron HCl Confirm 04/05/21 10:59 Ondansetron Hcl 4 Mg/2 Ml Vial Administered 04/05/21 11:00 Dose 4 mg .ROUTE .STK-MED ONE Lab/Rad Data: Laboratory Result Diagrams 04/05/21 10:19 04/05/21 10:19 Laboratory Results 04/05/21 04/05/21 04/05/21 Range/Units 12:01 11:49 10:19 WBC (4.0-10.5) K/mm3 RBC (4.1-5.4) M/mm3 Hgb (12.0-16.0) gm/dl Hct (35-47) % MCV (78-100) fl MCH (26-32) pg MCHC (32-36) g/dl RDW (11.5-14.0) % Plt Count (150-450) K/mm3 MPV (7.5-11.0) fl Sodium (137-145) mmol/L Potassium (3.5-5.1) mmol/L Chloride (98-107) mmol/L Carbon Dioxide (22-30) mmol/L Anion Gap (5-15) MEQ/L BUN (7-17) mg/dL Creatinine (0.52-1.04) mg/dL Estimated GFR ML/MIN Glucose (74-106) mg/dL Lactic Acid (0.4-2.0) Calcium (8.4-10.2) mg/dL Total Bilirubin (0.2-1.3) mg/dL AST (14-36) U/L ALT (0-35) U/L Alkaline Phosphatase (38-126) U/L Serum Total Protein (6.3-8.2) g/dL Albumin (3.5-5.0) g/dL TSH 3rd Generation 2.920 (0.47-4.68) mIU/L Urine Color STRAW (YELLOW) Urine Appearance CLEAR (CLEAR) Urine pH 8.0 (5-6) Ur Specific [place] 1.017 (1.005-1.025) Urine Protein NEGATIVE (Negative) Urine Ketones NEGATIVE (NEGATIVE) Urine Blood NEGATIVE (0-5) Pramod/ul Urine Nitrite NEGATIVE (NEGATIVE) Urine Bilirubin NEGATIVE (NEGATIVE) Urine Urobilinogen NEGATIVE (0-1) mg/dL Ur Leukocyte Esterase NEGATIVE (NEGATIVE) Urine WBC (Auto) NONE (0-5) /HPF Urine RBC (Auto) NONE (0-2) /HPF Urine Culture Reflexed NO (NO) Urine Glucose NEGATIVE (NEGATIVE) mg/dL Influenza Type A Ag NEGATIVE (NEGATIVE) Influenza Type B Ag NEGATIVE (NEGATIVE) RSV (PCR) NEGATIVE (Negative) SARS-CoV-2 (PCR) NEGATIVE (NEGATIVE) 04/05/21 04/05/21 04/05/21 Range/Units 10:19 10:19 10:19 WBC 18.8 H (4.0-10.5) K/mm3 RBC 3.99 L (4.1-5.4) M/mm3 Hgb 11.8 L D (12.0-16.0) gm/dl Hct 36.8 (35-47) % MCV 92.2 (78-100) fl MCH 29.6 (26-32) pg MCHC 32.1 (32-36) g/dl RDW 14.7 H (11.5-14.0) % Plt Count 251 D (150-450) K/mm3 MPV 11.3 H (7.5-11.0) fl Sodium 131 L (137-145) mmol/L Potassium 3.8 (3.5-5.1) mmol/L Chloride 100 (98-107) mmol/L Carbon Dioxide 21 L (22-30) mmol/L Anion Gap 13.7 (5-15) MEQ/L BUN 6 L (7-17) mg/dL Creatinine 0.58 (0.52-1.04) mg/dL Estimated GFR > 60.0 ML/MIN Glucose 115 H (74-106) mg/dL Lactic Acid 3.1 H (0.4-2.0) Calcium 8.9 (8.4-10.2) mg/dL Total Bilirubin 0.60 (0.2-1.3) mg/dL AST 74 H (14-36) U/L ALT 29 (0-35) U/L Alkaline Phosphatase 285 H (38-126) U/L Serum Total Protein 6.3 (6.3-8.2) g/dL Albumin 3.3 L (3.5-5.0) g/dL TSH 3rd Generation (0.47-4.68) mIU/L Urine Color (YELLOW) Urine Appearance (CLEAR) Urine pH (5-6) Ur Specific [place] (1.005-1.025) Urine Protein (Negative) Urine Ketones (NEGATIVE) Urine Blood (0-5) Pramod/ul Urine Nitrite (NEGATIVE) Urine Bilirubin (NEGATIVE) Urine Urobilinogen (0-1) mg/dL Ur Leukocyte Esterase (NEGATIVE) Urine WBC (Auto) (0-5) /HPF Urine RBC (Auto) (0-2) /HPF Urine Culture Reflexed (NO) Urine Glucose (NEGATIVE) mg/dL Influenza Type A Ag (NEGATIVE) Influenza Type B Ag (NEGATIVE) RSV (PCR) (Negative) SARS-CoV-2 (PCR) (NEGATIVE) - Progress Progress: improved Progress Note: Patient reassessed. She feels much better. Case discussed with Dr. Pendleton who accepts admission to observation. Per Dr. Pendleton we will dose patient with clindamycin. He requested gentamicin as well. We will have pharmacy dose gentamicin dose. Lactic acid elevated at 3.1. IV fluids infused. Mild hyponatremia. The fluid should address the lactic acidosis and hyponatremia. Plan of care discussed with patient. She agrees to admission [facility] for further evaluation and treatment. Patient voices no other complaints or concerns at this time. Portions of this note were created with voice recognition technology. There may be grammatical, spelling, punctuation or sound alike errors 04/05/21 13:[address] Vivian Will see patient in: hospital (observation) Counseled pt/family regarding: lab results, diagnosis, rad results - Departure Departure Disposition: Observation Clinical Impression: Fever, Leukocytosis, Hyponatremia, Lactic acidosis, Cholelithiasis, SIRS (systemic inflammatory response syndrome) Condition: Stable Critical Care Time: No Referrals: CRISTIN PENDLETON MD [Primary Care Provider] - Follow up/PCP as directed
[2021-04-05] MEDS ORDERED: Zofran 4 MG/2 ML VIAL IV ONE (11:01)
--- NOTE | 2021-04-05 11:11 | XRAY ---
Exam: AP semiupright portable chest film from 04/05/2021. Comparison: AP semiupright portable chest film from 04/02/2021. Indication: 21-year-old female with fever; ? pneumonia. Findings: The heart size and contour are normal. The oscar and mediastinal structures appear unremarkable. The lungs are adequately inflated. I see no new airspace infiltrates, vascular congestion, pneumothorax, or pleural effusion. No acute osseous process is seen. There is minimal convexity of the upper thoracic spine toward the left centered at T4-T5 representing no change. Impression: 1. No air space infiltrates to suggest pneumonia or other acute cardiopulmonary disease is seen, no change from 04/02/2021.
[2021-04-05 11:14] LABS: ALBUMIN 3.3 g/dL (3.5-5.0); ALKALINE PHOSPHATASE 285 U/L (38-126); ANION GAP 13.7 MEQ/L (5-15); BLOOD UREA NITROGEN 6 mg/dL (7-17); CHLORIDE 100 mmol/L (98-107); Calcium 8.9 mg/dL (8.4-10.2); Carbon Dioxide 21 mmol/L (22-30); Creatinine 1 0.58 mg/dL (0.52-1.04); EST GLOMERULAR FILTRATION RATE > 60.0 ML/MIN; Glucose 115 mg/dL (74-106); Potassium 3.8 mmol/L (3.5-5.1); SGOT/AST 74 U/L (14-36); SGPT/ALT 29 U/L (0-35); SODIUM 131 mmol/L (137-145); Total Protein 6.3 g/dL (6.3-8.2)
--- NOTE | 2021-04-05 11:55 | XRAY ---
Exam: CT of the abdomen and pelvis with IV contrast from 04/05/2021. CTDI: 3.67 mGy Comparison: None. Indication: 31-year-old female who is 2 days post ; ? Pneumonia. High fever, lower right-sided pain. Technique: Post-IV contrast axial images were obtained through the abdomen and pelvis during automated injection of 80 cc of Isovue-370 contrast material. Reconstructed coronal and sagittal images were created and reviewed. Findings: The visualized lung bases reveal a tiny amount of posterior pleural fluid, left greater than right. There is some minimal linear stranding at the left lung base, likely due to atelectasis. An airspace infiltrate at the lung bases is not seen. The transverse heart size is normal without pericardial effusion. The liver appears of normal size and uniform attenuation. No hepatic mass or intrahepatic biliary duct distention is seen. There are 2 or 3 intraluminal gallstones consistent with cholelithiasis. The largest gallstone measures about 1.9 cm in diameter. No extrahepatic biliary duct distention is seen. The spleen is of normal size and reveals no focal mass. The pancreas and adrenal glands appear normal. The kidneys are unremarkable size and shape. No renal mass or hydronephrosis is seen. No renal calculi are seen. The renal parenchyma opacifies normally. I appreciate no ureteral distention or definite calcification. There is no evidence of abdominal aortic aneurysm or abnormal retroperitoneal lymphadenopathy. No free intraperitoneal air or ventral abdominal wall hernia is seen. I do note soft tissue air external to the lower abdominal musculature, right greater than left, which is probably related to the patient's recent section. Scattered stool noted throughout the colon. No abnormal bowel distention is seen to suggest bowel obstruction. No bowel wall thickening is seen. I do not definitely see the appendix, although no definite secondary findings are seen to suggest appendicitis. The uterus is enlarged and anteflexed, consistent with the patient's post-gravid state. A small amount of low-attenuation density is seen within the endometrium which may relate to fluid or blood. Correlate clinically. The urinary bladder is distended and reveals no gross abnormality. The ureters opacify normally on the delayed images. Both kidneys function well on delayed images. No abnormal pelvic mass or pelvic lymphadenopathy is seen. No free fluid is seen within the pelvis. The femoral regions appear unremarkable. The skeleton reveals no acute fracture or aggressive bone lesion. Impression: 1. Cholelithiasis without convincing findings of concomitant cholecystitis. Consider further evaluation with a radionuclide hepatobiliary scan if warranted. 2. A small amount of posterior pleural fluid is seen, left greater than right. There is also minimal linear atelectasis at the left lung base. No airspace infiltrate is seen at the lung bases. 3. The uterus is enlarged and anteflexed. This is consistent with the patient's post-gravid state. Small mild low-attenuation density is seen within the endometrium which could represent residual blood/fluid. Correlate clinically. 4. I do note some subcutaneous soft tissue air density external to the lower anterior abdominal wall musculature, greater on the right than left, consistent with postoperative changes from the patient's recent section. 5. No other acute process is seen within the abdomen or pelvis.
[2021-04-05 12:10] LABS: Appearance CLEAR (CLEAR); Bilirubin NEGATIVE (NEGATIVE); Blood NEGATIVE Ery/ul (0-5); Glucose NEGATIVE (NEGATIVE); Ketones NEGATIVE (NEGATIVE); Leukocyte Esterase NEGATIVE (NEGATIVE); Nitrite NEGATIVE (NEGATIVE); Protein,Urine Dip NEGATIVE (Negative); Specific Gravity 1.017 (1.005-1.025); Urobilinogen NEGATIVE mg/dL (0-1)
[2021-04-05 12:42] LABS: INFLUENZA A NEGATIVE (NEGATIVE); INFLUENZA B NEGATIVE (NEGATIVE); RESPIRATORY SYNCTIAL VIRUS NEGATIVE (Negative); SARS-CoV-2 Xpert Express NEGATIVE (NEGATIVE)
[2021-04-05] MEDS ORDERED: Cleocin Phosphate IV 600 MG/4 ML IV STA (13:00)
[2021-04-05] MEDS ORDERED: CLINDAMYCIN-D5W 600 MG/50 ML*** 600 MG/50 ML BAG IV STA (13:04)
[2021-04-05] MEDS ORDERED: CLINDAMYCIN-D5W 600 MG/50 ML*** 600 MG/50 ML BAG IV ONE (13:05)
[2021-04-05] MEDS ORDERED: Zofran 4 MG/2 ML VIAL IV PRN (13:33)
[2021-04-05 13:58] LABS: BAND 3 % (0.0-2.0); Lymphocytes 11 % (24-44); Monocyte 4 % (0.0-12.0); Neutrophils 82 % (36.0-66.0); Platelet Estimate NORMAL (NORMAL); Total Cells Counted 100; Toxic Granulation 1+
[2021-04-05] MEDS: Sodium Chloride 0.9% 1000 ML 1,000 ML IV SCH (14:19)
[2021-04-05] MEDS: MORPHINE SULFATE 4 MG INJ IV PRN ×2 (14:54→19:47)
[2021-04-05] MEDS: GARAMYCIN IV SCH (15:29)
[2021-04-05] MEDS: SODIUM CHLORIDE 0.9% IV SCH (15:29)
[2021-04-05] MEDS: TYLENOL 325 MG PO PRN (16:18)
[2021-04-05] MEDS: THERAGRAN MULTIVITAMIN PO SCH (16:18)
--- NOTE | 2021-04-05 17:07 | PCM.HP ---
History of Present Illness - Chief Complaint Chief Complaint: FEVER History of Present Illness: is a 31 year old female who is day 3 post-op from a primary c- section, during labor she developed a high fever and had primary for nonreassuring heart tones, there was no obvious source of infection although placental pathology was negative. She was treated with Unasyn post-op, wbc improved and she was afebrile at discharge, after she went home she had worsening low abdominal/pelvic pain and fever returned, she has no vomiting or diarrhea, no cough. covid swab has now been negative x 3, her blood and urine cultures were negative and chest xray is again negative today. - Review of Systems Constitutional: Fever, Chills Respiratory: No Cough, No Short Of Breath Cardiac: No Chest Pain, No Edema, No Syncope Abdominal/Gastrointestinal: Abdominal Pain Genitourinary Symptoms: Other (mild lochia), No Dysuria All Other Systems: Reviewed and Negative Medications & Allergies Home Medications: Home Medication List Amox Tr/Potass Clav. 500 mg [Augmentin 500-125 Tablet] 1 each PO TID #21 tablet 04/04/21 [Rx Confirmed 04/05/21] Hydrocodone/Acetaminophen [Hydrocodone-Acetamin 5-325 mg] 1 tab PO Q6HPRN PRN #28 tablet MDD 4 04/04/21 [Rx Confirmed 04/05/21] Ferrous Sulfate 325 mg [Feosol 325 mg] 325 mg PO DAILY 04/05/21 [History Confirmed 04/05/21] Multivitamin 1 tablet PO DAILY 04/05/21 [History Confirmed 04/05/21] Allergies/Adverse Reactions: Allergies Allergy/AdvReac Type Severity Reaction Status Date / Time No Known Drug Allergies Allergy Verified 04/05/21 09:46 - Past Medical History Past Medical History: No - Female History Are you now?: No - Past Surgical History Past Surgical History: Yes Female Surgical History: Section - Social History Smoking Status: Never smoker Exposure to second hand smoke: No Alcohol: None Drug Use: none - Physical Exam Vital Signs: Vital Signs - 24 hr Temp Pulse Resp BP Pulse Ox 04/05/21 16:00 102.3 F 109 H 20 132/58 98 04/05/21 13:48 99.7 F 101 H 22 121/59 97 04/05/21 13:03 99 04/05/21 12:22 100.0 F 101 H 18 129/73 97 04/05/21 12:00 100 H 16 129/73 97 04/05/21 11:02 96 04/05/21 09:47 102.3 F 115 H 18 155/77 99 General Appearance: no apparent distress Neurologic Exam: alert, oriented x 3, cooperative Respiratory Exam: normal breath sounds, lungs clear, No respiratory distress Cardiovascular Exam: regular rate/rhythm, normal heart sounds, normal peripheral pulses Gastrointestinal/Abdomen Exam: soft, normal bowel sounds, tenderness (lower abdomen below umbilicus and right aspect of incision. incision is well approximated, steri-strips are intact. no redness, no drainage there is no tenderness in ruq, negative harrell sign), No mass Results - Labs Lab/Micro Results: Lab Results-Last 24 Hours 04/05/21 04/05/21 04/05/21 Range/Units 10:19 10:19 10:19 WBC 18.8 H (4.0-10.5) K/mm3 RBC 3.99 L (4.1-5.4) M/mm3 Hgb 11.8 L D (12.0-16.0) gm/dl Hct 36.8 (35-47) % MCV 92.2 (78-100) fl MCH 29.6 (26-32) pg MCHC 32.1 (32-36) g/dl RDW 14.7 H (11.5-14.0) % Plt Count 251 D (150-450) K/mm3 MPV 11.3 H (7.5-11.0) fl Segmented Neutrophils 82 H (36.0-66.0) % Band Neutrophils 3 H (0.0-2.0) % Lymphocytes (Manual) 11 L (24-44) % Monocytes (Manual) 4 (0.0-12.0) % Toxic Granulation 1+ Platelet Estimate NORMAL (NORMAL) RBC Morphology NORMAL Sodium 131 L (137-145) mmol/L Potassium 3.8 (3.5-5.1) mmol/L Chloride 100 (98-107) mmol/L Carbon Dioxide 21 L (22-30) mmol/L Anion Gap 13.7 (5-15) MEQ/L BUN 6 L (7-17) mg/dL Creatinine 0.58 (0.52-1.04) mg/dL Estimated GFR > 60.0 ML/MIN Glucose 115 H (74-106) mg/dL Lactic Acid 3.1 H (0.4-2.0) Calcium 8.9 (8.4-10.2) mg/dL Total Bilirubin 0.60 (0.2-1.3) mg/dL AST 74 H (14-36) U/L ALT 29 (0-35) U/L Alkaline Phosphatase 285 H (38-126) U/L Serum Total Protein 6.3 (6.3-8.2) g/dL Albumin 3.3 L (3.5-5.0) g/dL TSH 3rd Generation (0.47-4.68) mIU/L Urine Color (YELLOW) Urine Appearance (CLEAR) Urine pH (5-6) Ur Specific [place] (1.005-1.025) Urine Protein (Negative) Urine Ketones (NEGATIVE) Urine Blood (0-5) Pramod/ul Urine Nitrite (NEGATIVE) Urine Bilirubin (NEGATIVE) Urine Urobilinogen (0-1) mg/dL Ur Leukocyte Esterase (NEGATIVE) Urine WBC (Auto) (0-5) /HPF Urine RBC (Auto) (0-2) /HPF Urine Culture Reflexed (NO) Urine Glucose (NEGATIVE) mg/dL Influenza Type A Ag (NEGATIVE) Influenza Type B Ag (NEGATIVE) RSV (PCR) (Negative) SARS-CoV-2 (PCR) (NEGATIVE) 04/05/21 04/05/21 04/05/21 Range/Units 10:19 11:49 12:01 WBC (4.0-10.5) K/mm3 RBC (4.1-5.4) M/mm3 Hgb (12.0-16.0) gm/dl Hct (35-47) % MCV (78-100) fl MCH (26-32) pg MCHC (32-36) g/dl RDW (11.5-14.0) % Plt Count (150-450) K/mm3 MPV (7.5-11.0) fl Segmented Neutrophils (36.0-66.0) % Band Neutrophils (0.0-2.0) % Lymphocytes (Manual) (24-44) % Monocytes (Manual) (0.0-12.0) % Toxic Granulation Platelet Estimate (NORMAL) RBC Morphology Sodium (137-145) mmol/L Potassium (3.5-5.1) mmol/L Chloride (98-107) mmol/L Carbon Dioxide (22-30) mmol/L Anion Gap (5-15) MEQ/L BUN (7-17) mg/dL Creatinine (0.52-1.04) mg/dL Estimated GFR ML/MIN Glucose (74-106) mg/dL Lactic Acid (0.4-2.0) Calcium (8.4-10.2) mg/dL Total Bilirubin (0.2-1.3) mg/dL AST (14-36) U/L ALT (0-35) U/L Alkaline Phosphatase (38-126) U/L Serum Total Protein (6.3-8.2) g/dL Albumin (3.5-5.0) g/dL TSH 3rd Generation 2.920 (0.47-4.68) mIU/L Urine Color STRAW (YELLOW) Urine Appearance CLEAR (CLEAR) Urine pH 8.0 (5-6) Ur Specific [place] 1.017 (1.005-1.025) Urine Protein NEGATIVE (Negative) Urine Ketones NEGATIVE (NEGATIVE) Urine Blood NEGATIVE (0-5) Pramod/ul Urine Nitrite NEGATIVE (NEGATIVE) Urine Bilirubin NEGATIVE (NEGATIVE) Urine Urobilinogen NEGATIVE (0-1) mg/dL Ur Leukocyte Esterase NEGATIVE (NEGATIVE) Urine WBC (Auto) NONE (0-5) /HPF Urine RBC (Auto) NONE (0-2) /HPF Urine Culture Reflexed NO (NO) Urine Glucose NEGATIVE (NEGATIVE) mg/dL Influenza Type A Ag NEGATIVE (NEGATIVE) Influenza Type B Ag NEGATIVE (NEGATIVE) RSV (PCR) NEGATIVE (Negative) SARS-CoV-2 (PCR) NEGATIVE (NEGATIVE) 04/05/21 Range/Units 13:09 WBC (4.0-10.5) K/mm3 RBC (4.1-5.4) M/mm3 Hgb (12.0-16.0) gm/dl Hct (35-47) % MCV (78-100) fl MCH (26-32) pg MCHC (32-36) g/dl RDW (11.5-14.0) % Plt Count (150-450) K/mm3 MPV (7.5-11.0) fl Segmented Neutrophils (36.0-66.0) % Band Neutrophils (0.0-2.0) % Lymphocytes (Manual) (24-44) % Monocytes (Manual) (0.0-12.0) % Toxic Granulation Platelet Estimate (NORMAL) RBC Morphology Sodium (137-145) mmol/L Potassium (3.5-5.1) mmol/L Chloride (98-107) mmol/L Carbon Dioxide (22-30) mmol/L Anion Gap (5-15) MEQ/L BUN (7-17) mg/dL Creatinine (0.52-1.04) mg/dL Estimated GFR ML/MIN Glucose (74-106) mg/dL Lactic Acid 0.8 (0.4-2.0) Calcium (8.4-10.2) mg/dL Total Bilirubin (0.2-1.3) mg/dL AST (14-36) U/L ALT (0-35) U/L Alkaline Phosphatase (38-126) U/L Serum Total Protein (6.3-8.2) g/dL Albumin (3.5-5.0) g/dL TSH 3rd Generation (0.47-4.68) mIU/L Urine Color (YELLOW) Urine Appearance (CLEAR) Urine pH (5-6) Ur Specific [place] (1.005-1.025) Urine Protein (Negative) Urine Ketones (NEGATIVE) Urine Blood (0-5) Pramod/ul Urine Nitrite (NEGATIVE) Urine Bilirubin (NEGATIVE) Urine Urobilinogen (0-1) mg/dL Ur Leukocyte Esterase (NEGATIVE) Urine WBC (Auto) (0-5) /HPF Urine RBC (Auto) (0-2) /HPF Urine Culture Reflexed (NO) Urine Glucose (NEGATIVE) mg/dL Influenza Type A Ag (NEGATIVE) Influenza Type B Ag (NEGATIVE) RSV (PCR) (Negative) SARS-CoV-2 (PCR) (NEGATIVE) - Radiology Impressions Radiology Exams & Impressions: Radiology Procedures Category Date Time Status ABDOMEN AND PELVIS W CONTRAST [CT] Stat Exams 04/05/21 10:39 Completed CHEST 1 VIEW (PORTABLE) Stat Exams 04/05/21 10:39 Completed Assessment/Plan (1) Endometritis Current Visit: Yes Status: Acute Assessment & Plan: I suspect this patient had chroioamnionitis at delivery and now has subsequently developed endometritis post-operatively, IV cleocin and gent ordered, want to see her fever free for more than 24 hours and wbc normalized prior to discharge. Code(s): N71.9 - INFLAMMATORY DISEASE OF UTERUS, UNSPECIFIED (2) Cholelithiasis Current Visit: Yes Status: Acute Assessment & Plan: incidental finding, no suggestion of cholecystitis on exam or on ct scan (3) Lactic acidosis Current Visit: Yes Status: Acute Assessment & Plan: related to endometritis Code(s): E87.2 - ACIDOSIS (4) delivery delivered Current Visit: No Status: Acute Code(s): O82 - ENCOUNTER FOR DELIVERY WITHOUT INDICATION
[2021-04-05] MEDS: MOTRIN 600 MG PO PRN (17:36)
[2021-04-05] MEDS: CLINDAMYCIN-D5W 900 MG/50 ML*** 900 MG/50 ML BAG IV SCH (22:03)
[2021-04-06] MEDS: Sodium Chloride 0.9% 1000 ML 1,000 ML IV SCH (00:59)
[2021-04-06] MEDS: MORPHINE SULFATE 4 MG INJ IV PRN (01:12)
[2021-04-06] MEDS: MOTRIN 600 MG PO PRN ×3 (01:48→18:45)
[2021-04-06] MEDS: CLINDAMYCIN-D5W 900 MG/50 ML*** 900 MG/50 ML BAG IV SCH ×3 (05:57→22:07)
[2021-04-06 06:13] LABS: Hematocrit 30.6 % (35-47); Hemoglobin 9.7 gm/dl (12.0-16.0); Mean Cell Volume 93.6 fl (78-100); Mean Corpuscular Hemoglobin 29.7 pg (26-32); Mean Corpuscular Hgb Concent. 31.7 g/dl (32-36); Mean Platelet Volume 10.3 fl (7.5-11.0); Platelet Count 237 K/mm3 (150-450); Red Blood Count 3.27 M/mm3 (4.1-5.4); Red Cell Distribution Width 14.8 % (11.5-14.0); White Blood Count 16.8 K/mm3 (4.0-10.5)
[2021-04-06 07:06] LABS: ANISOCYTOSIS 1+; ATYPICAL LYMPHS 1 %; BAND 3 % (0.0-2.0); Lymphocytes 8 % (24-44); Monocyte 11 % (0.0-12.0); Neutrophils 77 % (36.0-66.0); Platelet Estimate NORMAL (NORMAL); Total Cells Counted 100
[2021-04-06 07:52] LABS: ALBUMIN 2.6 g/dL (3.5-5.0); ALKALINE PHOSPHATASE 239 U/L (38-126); ANION GAP 9.8 MEQ/L (5-15); BLOOD UREA NITROGEN 7 mg/dL (7-17); CHLORIDE 108 mmol/L (98-107); Calcium 8.3 mg/dL (8.4-10.2); Carbon Dioxide 23 mmol/L (22-30); EST GLOMERULAR FILTRATION RATE > 60.0 ML/MIN; Glucose 102 mg/dL (74-106); Potassium 3.3 mmol/L (3.5-5.1); SGOT/AST 39 U/L (14-36); SGPT/ALT 28 U/L (0-35); SODIUM 137 mmol/L (137-145); Total Protein 5.1 g/dL (6.3-8.2)
--- NOTE | 2021-04-06 08:59 | PCM.NOTE ---
Date and Time: 04/06/21 0858 Subjective Assessment: pain is improved, patient is tolerating po intake. no fever today. overall feeling better Objective Exam General Appearance: no apparent distress, alert Respiratory Exam: normal breath sounds, lungs clear, No respiratory distress Cardiovascular Exam: regular rate/rhythm, normal heart sounds Gastrointestinal/Abdomen Exam: soft, other (incision clean, dry, intact well approximated. fundus less tender) Extremity Exam: normal inspection, normal range of motion OBJECTIVE DATA Vital Signs: Vital Signs - 24 hr Temp Pulse Resp BP Pulse Ox 04/06/21 07:13 98.3 F 84 16 103/56 97 04/06/21 05:00 99.2 F 112 H 16 107/52 95 04/06/21 01:45 102.5 F 04/06/21 01:15 98.3 F 04/06/21 00:00 97.5 F 82 16 122/58 98 04/05/21 19:13 100.7 F 114 H 16 123/61 100 04/05/21 16:00 102.3 F 109 H 20 132/58 98 04/05/21 13:48 99.7 F 101 H 22 121/59 97 04/05/21 13:03 99 04/05/21 12:22 100.0 F 101 H 18 129/73 97 04/05/21 12:00 100 H 16 129/73 97 04/05/21 11:02 96 04/05/21 09:47 102.3 F 115 H 18 155/77 99 Pain Assessment - Last Documented Pain Intensity 0 Pain Scale Used 0-10 Pain Scale Intake and Output: Intake & Output 04/03/21 04/04/21 04/05/21 04/06/21 11:59 11:59 11:59 11:59 Intake Total 2756 Output Total 700 900 Balance -700 1856 Weight 60.1 kg 59 kg Lab Results: Lab Results-Last 24 Hours 04/05/21 04/05/21 04/05/21 Range/Units 10:19 10:19 10:19 WBC 18.8 H (4.0-10.5) K/mm3 RBC 3.99 L (4.1-5.4) M/mm3 Hgb 11.8 L D (12.0-16.0) gm/dl Hct 36.8 (35-47) % MCV 92.2 (78-100) fl MCH 29.6 (26-32) pg MCHC 32.1 (32-36) g/dl RDW 14.7 H (11.5-14.0) % Plt Count 251 D (150-450) K/mm3 MPV 11.3 H (7.5-11.0) fl Segmented Neutrophils 82 H (36.0-66.0) % Band Neutrophils 3 H (0.0-2.0) % Lymphocytes (Manual) 11 L (24-44) % Monocytes (Manual) 4 (0.0-12.0) % Atypical Lymphocytes % Toxic Granulation 1+ Platelet Estimate NORMAL (NORMAL) RBC Morphology NORMAL Anisocytosis Sodium 131 L (137-145) mmol/L Potassium 3.8 (3.5-5.1) mmol/L Chloride 100 (98-107) mmol/L Carbon Dioxide 21 L (22-30) mmol/L Anion Gap 13.7 (5-15) MEQ/L BUN 6 L (7-17) mg/dL Creatinine 0.58 (0.52-1.04) mg/dL Estimated GFR > 60.0 ML/MIN Glucose 115 H (74-106) mg/dL Lactic Acid 3.1 H (0.4-2.0) Calcium 8.9 (8.4-10.2) mg/dL Total Bilirubin 0.60 (0.2-1.3) mg/dL AST 74 H (14-36) U/L ALT 29 (0-35) U/L Alkaline Phosphatase 285 H (38-126) U/L Serum Total Protein 6.3 (6.3-8.2) g/dL Albumin 3.3 L (3.5-5.0) g/dL TSH 3rd Generation (0.47-4.68) mIU/L Urine Color (YELLOW) Urine Appearance (CLEAR) Urine pH (5-6) Ur Specific [place] (1.005-1.025) Urine Protein (Negative) Urine Ketones (NEGATIVE) Urine Blood (0-5) Pramod/ul Urine Nitrite (NEGATIVE) Urine Bilirubin (NEGATIVE) Urine Urobilinogen (0-1) mg/dL Ur Leukocyte Esterase (NEGATIVE) Urine WBC (Auto) (0-5) /HPF Urine RBC (Auto) (0-2) /HPF Urine Culture Reflexed (NO) Urine Glucose (NEGATIVE) mg/dL Random Gentamicin ug/mL Influenza Type A Ag (NEGATIVE) Influenza Type B Ag (NEGATIVE) RSV (PCR) (Negative) SARS-CoV-2 (PCR) (NEGATIVE) 04/05/21 04/05/21 04/05/21 Range/Units 10:19 11:49 12:01 WBC (4.0-10.5) K/mm3 RBC (4.1-5.4) M/mm3 Hgb (12.0-16.0) gm/dl Hct (35-47) % MCV (78-100) fl MCH (26-32) pg MCHC (32-36) g/dl RDW (11.5-14.0) % Plt Count (150-450) K/mm3 MPV (7.5-11.0) fl Segmented Neutrophils (36.0-66.0) % Band Neutrophils (0.0-2.0) % Lymphocytes (Manual) (24-44) % Monocytes (Manual) (0.0-12.0) % Atypical Lymphocytes % Toxic Granulation Platelet Estimate (NORMAL) RBC Morphology Anisocytosis Sodium (137-145) mmol/L Potassium (3.5-5.1) mmol/L Chloride (98-107) mmol/L Carbon Dioxide (22-30) mmol/L Anion Gap (5-15) MEQ/L BUN (7-17) mg/dL Creatinine (0.52-1.04) mg/dL Estimated GFR ML/MIN Glucose (74-106) mg/dL Lactic Acid (0.4-2.0) Calcium (8.4-10.2) mg/dL Total Bilirubin (0.2-1.3) mg/dL AST (14-36) U/L ALT (0-35) U/L Alkaline Phosphatase (38-126) U/L Serum Total Protein (6.3-8.2) g/dL Albumin (3.5-5.0) g/dL TSH 3rd Generation 2.920 (0.47-4.68) mIU/L Urine Color STRAW (YELLOW) Urine Appearance CLEAR (CLEAR) Urine pH 8.0 (5-6) Ur Specific [place] 1.017 (1.005-1.025) Urine Protein NEGATIVE (Negative) Urine Ketones NEGATIVE (NEGATIVE) Urine Blood NEGATIVE (0-5) Pramod/ul Urine Nitrite NEGATIVE (NEGATIVE) Urine Bilirubin NEGATIVE (NEGATIVE) Urine Urobilinogen NEGATIVE (0-1) mg/dL Ur Leukocyte Esterase NEGATIVE (NEGATIVE) Urine WBC (Auto) NONE (0-5) /HPF Urine RBC (Auto) NONE (0-2) /HPF Urine Culture Reflexed NO (NO) Urine Glucose NEGATIVE (NEGATIVE) mg/dL Random Gentamicin ug/mL Influenza Type A Ag NEGATIVE (NEGATIVE) Influenza Type B Ag NEGATIVE (NEGATIVE) RSV (PCR) NEGATIVE (Negative) SARS-CoV-2 (PCR) NEGATIVE (NEGATIVE) 04/05/21 04/06/21 04/06/21 Range/Units 13:09 05:20 05:20 WBC 16.8 H (4.0-10.5) K/mm3 RBC 3.27 L (4.1-5.4) M/mm3 Hgb 9.7 L (12.0-16.0) gm/dl Hct 30.6 L (35-47) % MCV 93.6 (78-100) fl MCH 29.7 (26-32) pg MCHC 31.7 L (32-36) g/dl RDW 14.8 H (11.5-14.0) % Plt Count 237 (150-450) K/mm3 MPV 10.3 (7.5-11.0) fl Segmented Neutrophils 77 H (36.0-66.0) % Band Neutrophils 3 H (0.0-2.0) % Lymphocytes (Manual) 8 L (24-44) % Monocytes (Manual) 11 (0.0-12.0) % Atypical Lymphocytes 1 % Toxic Granulation Platelet Estimate NORMAL (NORMAL) RBC Morphology ABNORMAL Anisocytosis 1+ Sodium 137 (137-145) mmol/L Potassium 3.3 L (3.5-5.1) mmol/L Chloride 108 H (98-107) mmol/L Carbon Dioxide 23 (22-30) mmol/L Anion Gap 9.8 (5-15) MEQ/L BUN 7 (7-17) mg/dL Creatinine 0.60 (0.52-1.04) mg/dL Estimated GFR > 60.0 ML/MIN Glucose 102 (74-106) mg/dL Lactic Acid 0.8 (0.4-2.0) Calcium 8.3 L (8.4-10.2) mg/dL Total Bilirubin 0.20 (0.2-1.3) mg/dL AST 39 H (14-36) U/L ALT 28 (0-35) U/L Alkaline Phosphatase 239 H (38-126) U/L Serum Total Protein 5.1 L (6.3-8.2) g/dL Albumin 2.6 L (3.5-5.0) g/dL TSH 3rd Generation (0.47-4.68) mIU/L Urine Color (YELLOW) Urine Appearance (CLEAR) Urine pH (5-6) Ur Specific [place] (1.005-1.025) Urine Protein (Negative) Urine Ketones (NEGATIVE) Urine Blood (0-5) Pramod/ul Urine Nitrite (NEGATIVE) Urine Bilirubin (NEGATIVE) Urine Urobilinogen (0-1) mg/dL Ur Leukocyte Esterase (NEGATIVE) Urine WBC (Auto) (0-5) /HPF Urine RBC (Auto) (0-2) /HPF Urine Culture Reflexed (NO) Urine Glucose (NEGATIVE) mg/dL Random Gentamicin ug/mL Influenza Type A Ag (NEGATIVE) Influenza Type B Ag (NEGATIVE) RSV (PCR) (Negative) SARS-CoV-2 (PCR) (NEGATIVE) 04/06/21 04/06/21 Range/Units 05:20 05:45 WBC (4.0-10.5) K/mm3 RBC (4.1-5.4) M/mm3 Hgb (12.0-16.0) gm/dl Hct (35-47) % MCV (78-100) fl MCH (26-32) pg MCHC (32-36) g/dl RDW (11.5-14.0) % Plt Count (150-450) K/mm3 MPV (7.5-11.0) fl Segmented Neutrophils (36.0-66.0) % Band Neutrophils (0.0-2.0) % Lymphocytes (Manual) (24-44) % Monocytes (Manual) (0.0-12.0) % Atypical Lymphocytes % Toxic Granulation Platelet Estimate (NORMAL) RBC Morphology Anisocytosis Sodium (137-145) mmol/L Potassium (3.5-5.1) mmol/L Chloride (98-107) mmol/L Carbon Dioxide (22-30) mmol/L Anion Gap (5-15) MEQ/L BUN (7-17) mg/dL Creatinine (0.52-1.04) mg/dL Estimated GFR ML/MIN Glucose (74-106) mg/dL Lactic Acid 0.8 (0.4-2.0) Calcium (8.4-10.2) mg/dL Total Bilirubin (0.2-1.3) mg/dL AST (14-36) U/L ALT (0-35) U/L Alkaline Phosphatase (38-126) U/L Serum Total Protein (6.3-8.2) g/dL Albumin (3.5-5.0) g/dL TSH 3rd Generation (0.47-4.68) mIU/L Urine Color (YELLOW) Urine Appearance (CLEAR) Urine pH (5-6) Ur Specific [place] (1.005-1.025) Urine Protein (Negative) Urine Ketones (NEGATIVE) Urine Blood (0-5) Pramod/ul Urine Nitrite (NEGATIVE) Urine Bilirubin (NEGATIVE) Urine Urobilinogen (0-1) mg/dL Ur Leukocyte Esterase (NEGATIVE) Urine WBC (Auto) (0-5) /HPF Urine RBC (Auto) (0-2) /HPF Urine Culture Reflexed (NO) Urine Glucose (NEGATIVE) mg/dL Random Gentamicin < 0.60 ug/mL Influenza Type A Ag (NEGATIVE) Influenza Type B Ag (NEGATIVE) RSV (PCR) (Negative) SARS-CoV-2 (PCR) (NEGATIVE) Radiology Exams: Radiology Procedures Category Date Time Status ABDOMEN AND PELVIS W CONTRAST [CT] Stat Exams 04/05/21 10:39 Completed CHEST 1 VIEW (PORTABLE) Stat Exams 04/05/21 10:39 Completed Assessment/Plan (1) Endometritis Current Visit: Yes Status: Acute Assessment & Plan: afebrile today, wbc improving. continue cleocin and gent, today is day #2 Code(s): N71.9 - INFLAMMATORY DISEASE OF UTERUS, UNSPECIFIED (2) Cholelithiasis Current Visit: Yes Status: Acute (3) Lactic acidosis Current Visit: Yes Status: Acute Code(s): E87.2 - ACIDOSIS (4) delivery delivered Current Visit: No Status: Acute Code(s): O82 - ENCOUNTER FOR DELIVERY WITHOUT INDICATION
[2021-04-06] MEDS: THERAGRAN MULTIVITAMIN PO SCH (09:03)
[2021-04-06] MEDS: FEOSOL 325 MG PO SCH (09:03)
[2021-04-06] MEDS: NORCO 5/325 MG PO PRN ×3 (09:30→22:07)
[2021-04-06] MEDS ORDERED: NON-FORMULARY ITEM (Multivitamin [Multivitamin] 1 EACH Tablet) PO SCH (10:00)
[2021-04-06] MEDS: Sodium Chloride 0.9% W/ 20 mEq KCl/LITER 1,000 ML IV SCH (11:29)
[2021-04-06] MEDS: SODIUM CHLORIDE 0.9% IV SCH (15:57)
[2021-04-06] MEDS: GARAMYCIN IV SCH (15:57)
[2021-04-06] MEDS: Colace 100 MG PO SCH (17:39)
[2021-04-07] MEDS: MOTRIN 600 MG PO PRN ×2 (01:29→13:33)
[2021-04-07] MEDS: NORCO 5/325 MG PO PRN ×3 (03:58→22:44)
[2021-04-07] MEDS: Sodium Chloride 0.9% W/ 20 mEq KCl/LITER 1,000 ML IV SCH (03:58)
[2021-04-07 05:12] LABS: ANION GAP 12.4 MEQ/L (5-15); BLOOD UREA NITROGEN 6 mg/dL (7-17); CHLORIDE 104 mmol/L (98-107); Calcium 8.3 mg/dL (8.4-10.2); Carbon Dioxide 21 mmol/L (22-30); Creatinine 1 0.54 mg/dL (0.52-1.04); EST GLOMERULAR FILTRATION RATE > 60.0 ML/MIN; Glucose 102 mg/dL (74-106); MAGNESIUM 1.6 mg/dL (1.6-2.3); Potassium 3.6 mmol/L (3.5-5.1); SODIUM 133 mmol/L (137-145)
[2021-04-07 05:16] LABS: Mean Cell Volume 92.8 fl (78-100); Mean Corpuscular Hemoglobin 29.9 pg (26-32); Mean Corpuscular Hgb Concent. 32.3 g/dl (32-36); Mean Platelet Volume 10.5 fl (7.5-11.0); Platelet Count 305 K/mm3 (150-450); Red Blood Count 3.34 M/mm3 (4.1-5.4); Red Cell Distribution Width 14.8 % (11.5-14.0); White Blood Count 17.6 K/mm3 (4.0-10.5)
[2021-04-07] MEDS: CLINDAMYCIN-D5W 900 MG/50 ML*** 900 MG/50 ML BAG IV SCH ×3 (06:57→22:41)
[2021-04-07 08:46] LABS: ANISOCYTOSIS 1+; BAND 7 % (0.0-2.0); Lymphocytes 15 % (24-44); Monocyte 11 % (0.0-12.0); Neutrophils 67 % (36.0-66.0); Platelet Estimate NORMAL (NORMAL); Total Cells Counted 100; Toxic Granulation 1+
[2021-04-07] MEDS: THERAGRAN MULTIVITAMIN PO SCH (09:08)
[2021-04-07] MEDS: FEOSOL 325 MG PO SCH (09:08)
[2021-04-07] MEDS: Colace 100 MG PO SCH (09:08)
--- NOTE | 2021-04-07 09:15 | PCM.NOTE ---
Date and Time: 04/07/21913 Subjective Assessment: patient is feeling better, pain is improving. had fever last evening up to 101 Objective Exam General Appearance: no apparent distress Neurologic Exam: alert, oriented x 3 Respiratory Exam: normal breath sounds, lungs clear, No respiratory distress Cardiovascular Exam: regular rate/rhythm, normal heart sounds Gastrointestinal/Abdomen Exam: soft (incision clean/dry/intact, uterine tenderness markedly improving) Extremity Exam: normal inspection, normal range of motion OBJECTIVE DATA Vital Signs: Vital Signs - 24 hr Temp Pulse Resp BP Pulse Ox 04/07/21 07:01 98.1 F 90 16 116/56 96 04/07/21 04:00 99.5 F 125 H 20 108/69 96 04/06/21 23:45 97.9 F 89 16 119/57 98 04/06/21 21:02 98.9 F 04/06/21 19:30 101.1 F 116 H 18 117/57 98 04/06/21 16:34 97.8 F 98 H 18 133/63 99 04/06/21 11:57 97.9 F 96 H 18 130/60 100 Pain Assessment - Last Documented Pain Intensity [Lower Anterior 2 /Posterior] Pain Intensity 0 Pain Scale Used 0-10 Pain Scale Intake and Output: Intake & Output 04/04/21 04/05/21 04/06/21 04/07/21 11:59 11:59 11:59 11:59 Intake Total 3236 2231 Output Total 900 Balance 2336 2231 Weight 60.1 kg 59 kg Lab Results: Lab Results-Last 24 Hours 04/07/21 04/07/21 Range/Units 04:29 04:29 WBC 17.6 H (4.0-10.5) K/mm3 RBC 3.34 L (4.1-5.4) M/mm3 Hgb 10.0 L (12.0-16.0) gm/dl Hct 31.0 L (35-47) % MCV 92.8 (78-100) fl MCH 29.9 (26-32) pg MCHC 32.3 (32-36) g/dl RDW 14.8 H (11.5-14.0) % Plt Count 305 (150-450) K/mm3 MPV 10.5 (7.5-11.0) fl Segmented Neutrophils 67 H (36.0-66.0) % Band Neutrophils 7 H (0.0-2.0) % Lymphocytes (Manual) 15 L (24-44) % Monocytes (Manual) 11 (0.0-12.0) % Toxic Granulation 1+ Platelet Estimate NORMAL (NORMAL) RBC Morphology ABNORMAL Anisocytosis 1+ Sodium 133 L (137-145) mmol/L Potassium 3.6 (3.5-5.1) mmol/L Chloride 104 (98-107) mmol/L Carbon Dioxide 21 L (22-30) mmol/L Anion Gap 12.4 (5-15) MEQ/L BUN 6 L (7-17) mg/dL Creatinine 0.54 (0.52-1.04) mg/dL Estimated GFR > 60.0 ML/MIN Glucose 102 (74-106) mg/dL Calcium 8.3 L (8.4-10.2) mg/dL Magnesium 1.6 (1.6-2.3) mg/dL Radiology Exams: Radiology Procedures Category Date Time Status ABDOMEN AND PELVIS W CONTRAST [CT] Stat Exams 04/05/21 10:39 Completed CHEST 1 VIEW (PORTABLE) Stat Exams 04/05/21 10:39 Completed Multi-Disciplinary Progress Notes: Multi-Disciplinary Progress Notes 04/06/21 10:49 Case Management Note by Leatha Tellez REFERRAL SENT TO OB CERTIFIED OPHTHALMIC TECHNOLOGIST VIA EMAIL D/T PATIENT AND SIG OTHER WANTING MORE INFORMATION ON WIC AND OTHER SERVICES AVAILABLE TO THEM Initialized on 04/06/21 10:49 - END OF NOTE Assessment/Plan (1) Endometritis Current Visit: Yes Status: Acute Assessment & Plan: pathology showed acute chorioamnionitis and funisitis on placenta pathology, continue cleocin and gent. Code(s): N71.9 - INFLAMMATORY DISEASE OF UTERUS, UNSPECIFIED (2) Cholelithiasis Current Visit: Yes Status: Acute (3) Lactic acidosis Current Visit: Yes Status: Acute Code(s): E87.2 - ACIDOSIS (4) delivery delivered Current Visit: No Status: Acute Code(s): O82 - ENCOUNTER FOR DELIVERY WITHOUT INDICATION
[2021-04-07] MEDS: TYLENOL 325 MG PO PRN (11:46)
[2021-04-07] MEDS: SODIUM CHLORIDE 0.9% IV SCH (15:32)
[2021-04-07] MEDS: GARAMYCIN IV SCH (15:32)
[2021-04-08] MEDS: Sodium Chloride 0.9% W/ 20 mEq KCl/LITER 1,000 ML IV SCH ×2 (03:52→22:40)
[2021-04-08] MEDS: CLINDAMYCIN-D5W 900 MG/50 ML*** 900 MG/50 ML BAG IV SCH (05:30)
[2021-04-08 05:59] LABS: Hematocrit 30.4 % (35-47); Hemoglobin 9.7 gm/dl (12.0-16.0); Mean Cell Volume 92.4 fl (78-100); Mean Corpuscular Hemoglobin 29.5 pg (26-32); Mean Corpuscular Hgb Concent. 31.9 g/dl (32-36); Platelet Count 345 K/mm3 (150-450); Red Blood Count 3.29 M/mm3 (4.1-5.4); Red Cell Distribution Width 14.9 % (11.5-14.0); White Blood Count 21.7 K/mm3 (4.0-10.5)
[2021-04-08 06:12] LABS: ANION GAP 12.1 MEQ/L (5-15); BLOOD UREA NITROGEN 6 mg/dL (7-17); CHLORIDE 104 mmol/L (98-107); Calcium 8.5 mg/dL (8.4-10.2); Carbon Dioxide 21 mmol/L (22-30); Creatinine 1 0.57 mg/dL (0.52-1.04); EST GLOMERULAR FILTRATION RATE > 60.0 ML/MIN; Glucose 106 mg/dL (74-106); Potassium 3.7 mmol/L (3.5-5.1); SODIUM 133 mmol/L (137-145)
[2021-04-08] MEDS: TYLENOL 325 MG PO PRN (06:47)
[2021-04-08 07:25] LABS: BAND 26 % (0.0-2.0); Basophil 1 % (0.0-1.0); Eosinophil 3 % (0.00-3.0); Lymphocytes 8 % (24-44); Monocyte 9 % (0.0-12.0); Neutrophils 53 % (36.0-66.0); Platelet Estimate NORMAL (NORMAL); Total Cells Counted 100
[2021-04-08 07:26] LABS: Absolute Neutrophil Ct (ANC) 17.47 (1.4-6.9)
[2021-04-08] MEDS ORDERED: DULCOLAX 5 MG PO PRN (08:59)
--- NOTE | 2021-04-08 09:01 | PCM.NOTE ---
Date and Time: 04/08/2159 Subjective Assessment: patient still running fever this am, increased wbc noted on cbc. still has pain in pelvis and back when febrile and shaking. Objective Exam General Appearance: no apparent distress Respiratory Exam: normal breath sounds, lungs clear, No respiratory distress Cardiovascular Exam: regular rate/rhythm, normal heart sounds Gastrointestinal/Abdomen Exam: soft, tenderness (uterine tenderness), No mass Extremity Exam: normal inspection, normal range of motion OBJECTIVE DATA Vital Signs: Vital Signs - 24 hr Temp Pulse Resp BP Pulse Ox 04/08/21 08:00 102.4 F 113 H 16 120/55 97 04/08/21 04:00 99.4 F 96 H 20 130/74 98 04/07/21 23:24 98.7 F 90 18 127/59 100 04/07/21 20:10 98.2 F 92 H 16 104/51 99 04/07/21 15:38 98.8 F 04/07/21 13:41 102.6 F 123 H 04/07/21 13:00 99.5 F 112 H 16 114/55 99 Pain Assessment - Last Documented Pain Intensity [Lower Anterior 2 /Posterior] Pain Intensity 1 Pain Scale Used [facility] Intake and Output: Intake & Output 04/05/21 04/06/21 04/07/21 04/08/21 11:59 11:59 11:59 11:59 Intake Total 3236 2231 1987 Output Total 900 Balance 2336 2231 1987 Weight 60.1 kg 59 kg Lab Results: Lab Results-Last 24 Hours 04/08/21 04/08/21 Range/Units 05:29 05:29 WBC 21.7 H (4.0-10.5) K/mm3 RBC 3.29 L (4.1-5.4) M/mm3 Hgb 9.7 L (12.0-16.0) gm/dl Hct 30.4 L (35-47) % MCV 92.4 (78-100) fl MCH 29.5 (26-32) pg MCHC 31.9 L (32-36) g/dl RDW 14.9 H (11.5-14.0) % Plt Count 345 (150-450) K/mm3 MPV 10.0 (7.5-11.0) fl Absolute Granulocytes 17.47 H (1.4-6.9) Segmented Neutrophils 53 (36.0-66.0) % Band Neutrophils 26 H (0.0-2.0) % Lymphocytes (Manual) 8 L (24-44) % Monocytes (Manual) 9 (0.0-12.0) % Eosinophils (Manual) 3 (0.00-3.0) % Basophils (Manual) 1 (0.0-1.0) % Platelet Estimate NORMAL (NORMAL) RBC Morphology NORMAL Sodium 133 L (137-145) mmol/L Potassium 3.7 (3.5-5.1) mmol/L Chloride 104 (98-107) mmol/L Carbon Dioxide 21 L (22-30) mmol/L Anion Gap 12.1 (5-15) MEQ/L BUN 6 L (7-17) mg/dL Creatinine 0.57 (0.52-1.04) mg/dL Estimated GFR > 60.0 ML/MIN Glucose 106 (74-106) mg/dL Calcium 8.5 (8.4-10.2) mg/dL Radiology Exams: Radiology Procedures Category Date Time Status MRI PELVIS WITHOUT CONTRAST [MRI] Routine Exams 04/08/21 08:49 Ordered Multi-Disciplinary Progress Notes: Multi-Disciplinary Progress Notes 04/07/21 10:36 Case Management Note by Leatha Tellez NO CHANGE IN DC PLANS AT THIS TIME Initialized on 04/07/21 10:36 - END OF NOTE Assessment/Plan (1) Endometritis Current Visit: Yes Status: Acute Assessment & Plan: change from cleocin/gent to invanz, start lovenox 40mg daily and obtain MRV pelvis to r/o thrombus after discussion of case with Dr Jeremy Diamond [facility]. Code(s): N71.9 - INFLAMMATORY DISEASE OF UTERUS, UNSPECIFIED (2) Cholelithiasis Current Visit: Yes Status: Acute (3) Lactic acidosis Current Visit: Yes Status: Acute Code(s): E87.2 - ACIDOSIS (4) delivery delivered Current Visit: No Status: Acute Code(s): O82 - ENCOUNTER FOR DELIVERY WITHOUT INDICATION
[2021-04-08] MEDS: Colace 100 MG PO SCH ×2 (09:58→21:49)
[2021-04-08] MEDS: THERAGRAN MULTIVITAMIN PO SCH (09:58)
[2021-04-08] MEDS: FEOSOL 325 MG PO SCH (09:58)
[2021-04-08] MEDS ORDERED: ENOXAPARIN SODIUM SQ SCH (10:00)
[2021-04-08] MEDS ORDERED: MORPHINE SULFATE 4 MG INJ IV ONE (10:38)
[2021-04-08] MEDS: Invanz 1 GM*** 1 G in Sodium Chloride 100ML MINI-BAG PLUS 100 ML IV SCH (11:41)
--- NOTE | 2021-04-08 11:48 | XRAY ---
Indication: Pain. Blood clots. Status post section. Conventional MRV pelvis performed. Left common iliac vein demonstrates a nonoccluding thrombus measuring at least 6 mm in diameter and 2.7 cm in length. Remaining MRV unremarkable. Prominent uterus consistent with recent gravid status. No abnormal bone marrow signal. Impression: Nonoccluding thrombus left common iliac vein.
[2021-04-08] MEDS ORDERED: OMNIPEN 2 GM IV SCH (12:00)
[2021-04-08] MEDS: NORCO 5/325 MG PO PRN ×2 (13:39→21:48)
[2021-04-08] MEDS: MOTRIN 600 MG PO PRN (15:13)
[2021-04-08] MEDS: ENOXAPARIN SODIUM SQ SCH (21:49)
[2021-04-09] MEDS: Sodium Chloride 0.9% W/ 20 mEq KCl/LITER 1,000 ML IV SCH (02:07)
[2021-04-09] MEDS: NORCO 5/325 MG PO PRN ×4 (03:30→23:16)
[2021-04-09 05:36] LABS: Hematocrit 30.5 % (35-47); Hemoglobin 9.6 gm/dl (12.0-16.0); Mean Cell Volume 92.7 fl (78-100); Mean Corpuscular Hemoglobin 29.2 pg (26-32); Mean Corpuscular Hgb Concent. 31.5 g/dl (32-36); Mean Platelet Volume 10.3 fl (7.5-11.0); Platelet Count 425 K/mm3 (150-450); Red Blood Count 3.29 M/mm3 (4.1-5.4); Red Cell Distribution Width 14.9 % (11.5-14.0)
[2021-04-09 06:40] LABS: ALBUMIN 3.3 g/dL (3.5-5.0); ALKALINE PHOSPHATASE 223 U/L (38-126); ANION GAP 13.2 MEQ/L (5-15); BLOOD UREA NITROGEN 9 mg/dL (7-17); CHLORIDE 105 mmol/L (98-107); Calcium 8.9 mg/dL (8.4-10.2); Carbon Dioxide 22 mmol/L (22-30); Creatinine 1 0.49 mg/dL (0.52-1.04); EST GLOMERULAR FILTRATION RATE > 60.0 ML/MIN; Glucose 93 mg/dL (74-106); Potassium 3.8 mmol/L (3.5-5.1); SGOT/AST 18 U/L (14-36); SGPT/ALT 15 U/L (0-35); SODIUM 136 mmol/L (137-145); Total Protein 6.6 g/dL (6.3-8.2)
[2021-04-09 07:12] LABS: BAND 14 % (0.0-2.0); Eosinophil 1 % (0.00-3.0); Lymphocytes 18 % (24-44); Metamyelocyte 1 %; Monocyte 6 % (0.0-12.0); Neutrophils 60 % (36.0-66.0); Total Cells Counted 100
[2021-04-09 07:13] LABS: ANISOCYTOSIS 1+; Platelet Estimate NORMAL (NORMAL)
[2021-04-09 07:14] LABS: Absolute Neutrophil Ct (ANC) 13.28 (1.4-6.9)
--- NOTE | 2021-04-09 08:03 | PCM.NOTE ---
Date and Time: 04/09/21800 Subjective Assessment: pain is more tolerable, tolerating po. no fever overnight last night Objective Exam General Appearance: no apparent distress, alert Respiratory Exam: normal breath sounds, lungs clear, No respiratory distress Cardiovascular Exam: regular rate/rhythm, normal heart sounds Gastrointestinal/Abdomen Exam: soft, other (incision clean, dry, intact. tender fundus and right aspect of uterus), No tenderness, No mass Extremity Exam: normal inspection, normal range of motion OBJECTIVE DATA Vital Signs: Vital Signs - 24 hr Temp Pulse Resp BP Pulse Ox 04/09/21 07:43 97.1 F 76 18 146/66 98 04/09/21 03:33 98.3 F 65 16 131/60 98 04/09/21 00:00 97.5 F 77 16 142/64 99 04/08/21 20:00 97.6 F 86 19 124/61 99 04/08/21 16:42 100.4 F 107 H 16 127/60 99 04/08/21 14:54 103.0 F 04/08/21 13:38 99.2 F 04/08/21 12:00 97.7 F 77 16 111/66 100 Pain Assessment - Last Documented Pain Intensity [Lower Anterior 2 /Posterior] Pain Intensity 2 Pain Scale Used 0-10 Pain Scale Intake and Output: Intake & Output 04/06/21 04/07/21 04/08/21 04/09/21 11:59 11:59 11:59 11:59 Intake Total 3236 2231 1987 115 Output Total 900 Balance 2336 2231 1987 115 Weight 59 kg Lab Results: Lab Results-Last 24 Hours 04/09/21 04/09/21 Range/Units 04:39 04:39 WBC 18.0 H (4.0-10.5) K/mm3 RBC 3.29 L (4.1-5.4) M/mm3 Hgb 9.6 L (12.0-16.0) gm/dl Hct 30.5 L (35-47) % MCV 92.7 (78-100) fl MCH 29.2 (26-32) pg MCHC 31.5 L (32-36) g/dl RDW 14.9 H (11.5-14.0) % Plt Count 425 (150-450) K/mm3 MPV 10.3 (7.5-11.0) fl Absolute Granulocytes 13.28 H (1.4-6.9) Segmented Neutrophils 60 (36.0-66.0) % Band Neutrophils 14 H (0.0-2.0) % Lymphocytes (Manual) 18 L (24-44) % Monocytes (Manual) 6 (0.0-12.0) % Eosinophils (Manual) 1 (0.00-3.0) % Metamyelocytes 1 % Platelet Estimate NORMAL (NORMAL) RBC Morphology ABNORMAL Anisocytosis 1+ Sodium 136 L (137-145) mmol/L Potassium 3.8 (3.5-5.1) mmol/L Chloride 105 (98-107) mmol/L Carbon Dioxide 22 (22-30) mmol/L Anion Gap 13.2 (5-15) MEQ/L BUN 9 (7-17) mg/dL Creatinine 0.49 L (0.52-1.04) mg/dL Estimated GFR > 60.0 ML/MIN Glucose 93 (74-106) mg/dL Calcium 8.9 (8.4-10.2) mg/dL Total Bilirubin 0.30 (0.2-1.3) mg/dL AST 18 (14-36) U/L ALT 15 (0-35) U/L Alkaline Phosphatase 223 H (38-126) U/L Serum Total Protein 6.6 (6.3-8.2) g/dL Albumin 3.3 L (3.5-5.0) g/dL Radiology Exams: Radiology Procedures Category Date Time Status MRI PELVIS WITHOUT CONTRAST [MRI] Routine Exams 04/08/21 08:49 Completed Multi-Disciplinary Progress Notes: Multi-Disciplinary Progress Notes 04/08/21 13:24 Case Management Note by Leatha Tellez NO CHANGE IN DC PLANS AT THIS TIME, PATIENT CONTINUES TO PLAN TO RETURN HOME TO HER PRIOR LEVEL OF FUNCTIONING WITH HER TO ASSIST NEEDED Initialized on 04/08/21 13:24 - END OF NOTE Assessment/Plan (1) septic thrombophlebitis Current Visit: Yes Status: Acute Assessment & Plan: on lovenox 1mg/kg bid, will need for at least 6 weeks. discussed with patient Code(s): O86.81 - PUERPERAL SEPTIC THROMBOPHLEBITIS (2) Endometritis Current Visit: Yes Status: Acute Assessment & Plan: change from clindamcyin/gent to invanz day #2 Code(s): N71.9 - INFLAMMATORY DISEASE OF UTERUS, UNSPECIFIED (3) delivery delivered Current Visit: No Status: Acute Code(s): O82 - ENCOUNTER FOR DELIVERY WITHOUT INDICATION
[2021-04-09] MEDS: FEOSOL 325 MG PO SCH (08:53)
[2021-04-09] MEDS: ENOXAPARIN SODIUM SQ SCH ×2 (08:53→23:06)
[2021-04-09] MEDS: THERAGRAN MULTIVITAMIN PO SCH (08:53)
[2021-04-09] MEDS: Colace 100 MG PO SCH ×2 (08:54→23:06)
[2021-04-09] MEDS: Invanz 1 GM*** 1 G in Sodium Chloride 100ML MINI-BAG PLUS 100 ML IV SCH (08:55)
[2021-04-10] MEDS: Sodium Chloride 0.9% W/ 20 mEq KCl/LITER 1,000 ML IV SCH (05:47)
[2021-04-10] MEDS: NORCO 5/325 MG PO PRN ×2 (06:38→14:33)
[2021-04-10 06:57] LABS: Hematocrit 34.4 % (35-47); Mean Cell Volume 91.7 fl (78-100); Mean Corpuscular Hemoglobin 29.3 pg (26-32); Mean Platelet Volume 9.6 fl (7.5-11.0); Platelet Count 588 K/mm3 (150-450); Red Blood Count 3.75 M/mm3 (4.1-5.4); Red Cell Distribution Width 14.9 % (11.5-14.0); White Blood Count 16.8 K/mm3 (4.0-10.5)
[2021-04-10 07:19] LABS: ALBUMIN 3.7 g/dL (3.5-5.0); ALKALINE PHOSPHATASE 215 U/L (38-126); ANION GAP 14.7 MEQ/L (5-15); BLOOD UREA NITROGEN 9 mg/dL (7-17); CHLORIDE 102 mmol/L (98-107); Calcium 9.1 mg/dL (8.4-10.2); Carbon Dioxide 23 mmol/L (22-30); Creatinine 1 0.59 mg/dL (0.52-1.04); EST GLOMERULAR FILTRATION RATE > 60.0 ML/MIN; Glucose 97 mg/dL (74-106); Potassium 3.9 mmol/L (3.5-5.1); SGOT/AST 25 U/L (14-36); SGPT/ALT 17 U/L (0-35); SODIUM 136 mmol/L (137-145); Total Protein 7.4 g/dL (6.3-8.2)
[2021-04-10 09:13] LABS: BAND 5 % (0.0-2.0); Eosinophil 1 % (0.00-3.0); Lymphocytes 16 % (24-44); Monocyte 7 % (0.0-12.0); Neutrophils 71 % (36.0-66.0); Platelet Estimate INCREASED (NORMAL); Total Cells Counted 100
[2021-04-10 09:14] LABS: Hypochromia 1+; Polychromasia 1+
[2021-04-10] MEDS: THERAGRAN MULTIVITAMIN PO SCH (10:13)
[2021-04-10] MEDS: FEOSOL 325 MG PO SCH (10:13)
[2021-04-10] MEDS: ENOXAPARIN SODIUM SQ SCH ×2 (10:13→21:15)
[2021-04-10] MEDS: Colace 100 MG PO SCH ×2 (10:13→21:15)
[2021-04-10] MEDS: Invanz 1 GM*** 1 G in Sodium Chloride 100ML MINI-BAG PLUS 100 ML IV SCH (10:13)
[2021-04-10] MEDS ORDERED: NORCO 5/325 MG PO PRN (16:24)
[2021-04-10] MEDS: MOTRIN 600 MG PO PRN (16:28)
[2021-04-11] MEDS: Sodium Chloride 0.9% W/ 20 mEq KCl/LITER 1,000 ML IV SCH ×2 (03:17→23:31)
[2021-04-11 06:02] LABS: Hematocrit 36.2 % (35-47); Hemoglobin 11.4 gm/dl (12.0-16.0); Mean Cell Volume 93.3 fl (78-100); Mean Corpuscular Hemoglobin 29.4 pg (26-32); Mean Corpuscular Hgb Concent. 31.5 g/dl (32-36); Mean Platelet Volume 9.4 fl (7.5-11.0); Platelet Count 673 K/mm3 (150-450); Red Blood Count 3.88 M/mm3 (4.1-5.4); Red Cell Distribution Width 14.8 % (11.5-14.0); White Blood Count 16.2 K/mm3 (4.0-10.5)
[2021-04-11 06:52] LABS: ALBUMIN 4.1 g/dL (3.5-5.0); ALKALINE PHOSPHATASE 223 U/L (38-126); ANION GAP 13.8 MEQ/L (5-15); BLOOD UREA NITROGEN 11 mg/dL (7-17); CHLORIDE 101 mmol/L (98-107); Calcium 9.6 mg/dL (8.4-10.2); Carbon Dioxide 22 mmol/L (22-30); Creatinine 1 0.62 mg/dL (0.52-1.04); EST GLOMERULAR FILTRATION RATE > 60.0 ML/MIN; Glucose 98 mg/dL (74-106); Potassium 4.3 mmol/L (3.5-5.1); SGOT/AST 26 U/L (14-36); SGPT/ALT 20 U/L (0-35); SODIUM 133 mmol/L (137-145); Total Protein 8.3 g/dL (6.3-8.2)
[2021-04-11] MEDS: THERAGRAN MULTIVITAMIN PO SCH (09:19)
[2021-04-11] MEDS: FEOSOL 325 MG PO SCH (09:19)
[2021-04-11] MEDS: ENOXAPARIN SODIUM SQ SCH ×2 (09:19→21:47)
[2021-04-11] MEDS: Colace 100 MG PO SCH ×2 (09:19→21:47)
[2021-04-11] MEDS: Invanz 1 GM*** 1 G in Sodium Chloride 100ML MINI-BAG PLUS 100 ML IV SCH (09:20)
[2021-04-12 05:13] LABS: Hematocrit 37.1 % (35-47); Hemoglobin 11.8 gm/dl (12.0-16.0); Mean Cell Volume 92.1 fl (78-100); Mean Corpuscular Hemoglobin 29.3 pg (26-32); Mean Corpuscular Hgb Concent. 31.8 g/dl (32-36); Mean Platelet Volume 9.3 fl (7.5-11.0); Platelet Count 699 K/mm3 (150-450); Red Blood Count 4.03 M/mm3 (4.1-5.4); Red Cell Distribution Width 14.8 % (11.5-14.0); White Blood Count 15.4 K/mm3 (4.0-10.5)
[2021-04-12 05:53] LABS: ALKALINE PHOSPHATASE 196 U/L (38-126); ANION GAP 18.7 MEQ/L (5-15); BLOOD UREA NITROGEN 12 mg/dL (7-17); CHLORIDE 103 mmol/L (98-107); Calcium 9.9 mg/dL (8.4-10.2); Carbon Dioxide 19 mmol/L (22-30); Creatinine 1 0.55 mg/dL (0.52-1.04); EST GLOMERULAR FILTRATION RATE > 60.0 ML/MIN; Glucose 97 mg/dL (74-106); Potassium 4.8 mmol/L (3.5-5.1); SGOT/AST 26 U/L (14-36); SGPT/ALT 21 U/L (0-35); SODIUM 136 mmol/L (137-145); Total Protein 7.7 g/dL (6.3-8.2)
[2021-04-12] MEDS: Invanz 1 GM*** 1 G in Sodium Chloride 100ML MINI-BAG PLUS 100 ML IV SCH (11:06)
[2021-04-12] MEDS: THERAGRAN MULTIVITAMIN PO SCH (11:08)
[2021-04-12] MEDS: FEOSOL 325 MG PO SCH (11:08)
[2021-04-12] MEDS: Colace 100 MG PO SCH ×2 (11:08→22:23)
[2021-04-12] MEDS: ENOXAPARIN SODIUM SQ SCH ×2 (11:11→22:23)
[2021-04-13 05:31] LABS: Hematocrit 37.7 % (35-47); Hemoglobin 12.1 gm/dl (12.0-16.0); Mean Cell Volume 91.7 fl (78-100); Mean Corpuscular Hemoglobin 29.4 pg (26-32); Mean Corpuscular Hgb Concent. 32.1 g/dl (32-36); Mean Platelet Volume 9.1 fl (7.5-11.0); Platelet Count 688 K/mm3 (150-450); Red Blood Count 4.11 M/mm3 (4.1-5.4); Red Cell Distribution Width 14.6 % (11.5-14.0); White Blood Count 12.6 K/mm3 (4.0-10.5)
[2021-04-13 05:57] LABS: ALBUMIN 4.1 g/dL (3.5-5.0); ALKALINE PHOSPHATASE 186 U/L (38-126); ANION GAP 17.9 MEQ/L (5-15); BLOOD UREA NITROGEN 14 mg/dL (7-17); CHLORIDE 100 mmol/L (98-107); Calcium 9.9 mg/dL (8.4-10.2); Carbon Dioxide 22 mmol/L (22-30); Creatinine 1 0.61 mg/dL (0.52-1.04); EST GLOMERULAR FILTRATION RATE > 60.0 ML/MIN; Glucose 95 mg/dL (74-106); Potassium 4.3 mmol/L (3.5-5.1); SGOT/AST 28 U/L (14-36); SGPT/ALT 25 U/L (0-35); SODIUM 136 mmol/L (137-145); Total Protein 7.7 g/dL (6.3-8.2)
[2021-04-13 07:05] LABS: BAND 3 % (0.0-2.0); Basophil 2 % (0.0-1.0); Lymphocytes 28 % (24-44); Monocyte 10 % (0.0-12.0); Neutrophils 57 % (36.0-66.0); Total Cells Counted 100
[2021-04-13 07:06] LABS: Platelet Estimate NORMAL (NORMAL)
[2021-04-13] MEDS: ENOXAPARIN SODIUM SQ SCH (09:22)
[2021-04-13] MEDS: Colace 100 MG PO SCH (09:22)
[2021-04-13] MEDS: FEOSOL 325 MG PO SCH (09:29)
[2021-04-13] MEDS: THERAGRAN MULTIVITAMIN PO SCH (09:30)
[2021-04-13] MEDS: Invanz 1 GM*** 1 G in Sodium Chloride 100ML MINI-BAG PLUS 100 ML IV SCH (09:33)
[2021-04-13 13:56] VITALS: BP 117/58; PULSE 98; O2SAT 98
== END 2021-04-13 14:20 | disposition home or self-care (01) | DRG 776 ==
LOC: ED 09:36 → MED SURG 13:30 → OBSVTOIN 04-08 08:59
PROVIDERS: ADMIT Family Medicine; ATTEND Family Medicine
DX: O86.81 Puerperal septic thrombophlebitis (principal); E87.2 Acidosis; R65.10 Systemic inflammatory response syndrome (SIRS) of non-infectious origin without acute organ dysfunction; E87.1 Hypo-osmolality and hyponatremia; O86.12 Endometritis following delivery; K80.20 Calculus of gallbladder without cholecystitis without obstruction; D72.829 Elevated white blood cell count, unspecified; R50.9 Fever, unspecified; R10.2 Pelvic and perineal pain; Z20.828 Contact with and (suspected) exposure to other viral communicable diseases; Z79.899 Other long term (current) drug therapy
CPT/HCPCS: 0241U; 36000; 36415; 71045; 72195; 74177; 80048; 80053; 80170; 81001; 83605; 83735; 84443; 85025; 85027; 87040; 87086; 93041; 93268; 94760; 96360; 96374; 96375; 99285; J1335; J1580; J1650; J2270; J2405; L0625; P9612; A9270-GY; G0378

== ENCOUNTER 2022-06-20 11:23 | Observation (INO) | payer MEDICAID ==
[2022-06-20 12:17] VITALS: BP 110/52; PULSE 93
== END 2022-06-20 12:30 | disposition home or self-care (01) ==
LOC: LAB 11:23 → OB 11:48
PROVIDERS: ADMIT Family Medicine; ATTEND Family Medicine
DX: Z34.83 Encounter for supervision of other normal pregnancy, third trimester (principal); Z3A.30 30 weeks gestation of pregnancy
CPT/HCPCS: 36415; 82947; G0378

== ENCOUNTER 2022-08-05 14:13 | Observation (INO) | payer MEDICAID ==
[2022-08-05 15:38] VITALS: BP 133/58
[2022-08-05] MEDS ORDERED: BRETHINE 1 MG/ML SQ ONE (16:36)
[2022-08-05] MEDS ORDERED: Lactated Ringers 1,000 ML IV ONE (16:37)
[2022-08-05 18:43] VITALS: PULSE 90; O2SAT 98
== END 2022-08-05 18:25 | disposition home or self-care (01) ==
LOC: OB.NST 14:13 → OB 16:33
PROVIDERS: ADMIT Family Medicine; ATTEND Family Medicine
DX: Z34.83 Encounter for supervision of other normal pregnancy, third trimester (principal); Z3A.36 36 weeks gestation of pregnancy
CPT/HCPCS: 59025; 96372; 99213; G0378

== ENCOUNTER 2022-09-24 11:14 | Emergency (ER) | payer MEDICAID ==
--- NOTE | 2022-09-24 11:41 | ERPHSYRPT ---
- History of Present Illness Time Seen by Provider: 09/24/22 11:36 Source: patient, family Exam Limitations: no limitations Patient Subjective Stated Complaint: PT HERE FOR FEVER, VOMITING, HEADACHE FOR 3 DAYS NOW, SHE IS A MONTH POST C/S, SHE IS . Triage Nursing Assessment: PT ALERT, WALKED IN, RESP EASY , FACE MASK IN PLACE, ABD SOFT, SKIN WARM, SWEATY,BRON, MUCUS MEMBRANES MOIST, NO EDEMA NOTED Physician History: 32 yr old female 1 month post C Section with 3 days of N/V fever and mild headache. No resp symptoms. No abd pain. No pelvic pain or discharge or bleeding. Chest clear. No resp symptoms. Abd soft and nontender without peritoneal signs or masses. wound healing well without drainage or erythema. Breast nontender without erythema and no reported symptoms. ENT normal without signs of infection. No rash. No meningismis. Normal mental status and neuro exam fundi benign. . Discussed with pt risk/benefits of testing - CBC CMP, Cultures, Resp swabs panel due to unexplained fever, UA, and she wishes to proceed - results discussed. risk/benefit of treatment Zofran and potassium replacement and need for antibiotics discussed and she wishes to proceed. Timing/Duration: day(s) Severity: moderate Modifying Factors: Improves With: eating Associated Symptoms: nausea, vomiting, headaches, No abdominal pain, No cough, No rash Allergies/Adverse Reactions: No Known Drug Allergies Allergy (Verified 09/24/22 11:20) Hx Tetanus, Diphtheria Vaccination/Date Given: No Hx Influenza Vaccination/Date Given: No Hx Pneumococcal Vaccination/Date Given: No Immunizations Up to Date: Yes Travel Risk - International Travel Have you traveled outside of the country in past 3 weeks: No - Coronavirus Screening Are you exhibiting any of the following symptoms?: Yes Symptoms: Fever, Vomiting/Diarrhea Close contact with a COVID-19 positive Pt in past 14-21 Days: No - Vaccine Status Have you recieved a Covid-19 vaccination: Yes [employer]: [employer] - Vaccination Dates Date of 2cond Vaccination (if applicable): December 30, 2020 - Review of Systems Constitutional: Fever Eyes: No Symptoms Ears, Nose, & Throat: No Symptoms Respiratory: No Symptoms Cardiac: No Symptoms Abdominal/Gastrointestinal: Nausea, Vomiting, No Diarrhea Genitourinary Symptoms: No Symptoms Musculoskeletal: No Symptoms Skin: No Symptoms Neurological: Headache Psychological: No Symptoms Endocrine: No Symptoms Hematologic/Lymphatic: No Symptoms Immunological/Allergic: No Symptoms All Other Systems: Reviewed and Negative - Past Medical History Pertinent Past Medical History: No Neurological History: No Pertinent History ENT History: No Pertinent History Cardiac History: No Pertinent History Respiratory History: No Pertinent History Endocrine Medical History: No Pertinent History Musculoskeletal History: No Pertinent History GI Medical History: No Pertinent History History: No Pertinent History Psycho-Social History: No Pertinent History Female Reproductive Disorders: No Pertinent History - Past Surgical History Past Surgical History: Yes Neuro Surgical History: No Pertinent History Cardiac: No Pertinent History Respiratory: No Pertinent History Gastrointestinal: No Pertinent History Genitourinary: No Pertinent History Musculoskeletal: No Pertinent History Female Surgical History: Section Other Surgical History: C/S JULY 2022 - Social History Smoking Status: Never smoker Exposure to second hand smoke: Yes Drug Use: none Patient Lives Alone: No - Female History Hx Last Menstrual Period: JULY 2021 Hx Now: No - Nursing Vital Signs Nursing Vital Signs: Initial Vital Signs Temperature 97.1 F 09/24/22 11:29 Pulse Rate 134 H 09/24/22 11:29 Respiratory Rate 18 09/24/22 11:29 Blood Pressure 114/74 09/24/22 11:29 O2 Sat by Pulse Oximetry 98 09/24/22 11:29 Pain Scale Pain Intensity 0 - Physical Exam General Appearance: no apparent distress, alert Eye Exam: PERRL/EOMI, eyes nml inspection Ears, Nose, Throat Exam: normal ENT inspection, TMs normal, pharynx normal, kiel st mucous membranes Neck Exam: normal inspection, non-tender, supple, full range of motion, No meningismus, No Brudzinski, No Kernig's Respiratory Exam: normal breath sounds, lungs clear, No respiratory distress Cardiovascular Exam: regular rate/rhythm, normal heart sounds, normal peripheral pulses Gastrointestinal/Abdomen Exam: soft, normal bowel sounds, No tenderness, No distention, No mass, No guarding Pelvic Exam: deferred Rectal Exam: deferred Back Exam: normal inspection, normal range of motion, No CVA tenderness, No vertebral tenderness Extremity Exam: normal inspection, normal range of motion, pelvis stable Neurologic Exam: alert, oriented x 3, cooperative, normal mood/affect, nml cerebellar function, nml station & gait, sensation nml, No motor deficits Skin Exam: normal color, warm, dry, No rash Lymphatic Exam: inguinal node tender (L), No adenopathy SpO2: 98 O2 Delivery: Room Air - Course Nursing assessment & vital signs reviewed: Yes Ordered Tests: Active Orders 24 hr Category Date Time Status IV Insertion STAT Care 09/24/22 11:44 Active Telemetry q4h Care 09/24/22 12:43 Active AMYLASE Stat Lab 09/24/22 12:05 Completed BLOOD CULTURE Stat Lab 09/24/22 12:05 Received CBC W DIFF Stat Lab 09/24/22 11:44 Completed CMP Stat Lab 09/24/22 12:05 Completed CULTURE,URINE Stat Lab 09/24/22 11:48 Received HCG, Quantitative (Inhouse) Stat Lab 09/24/22 12:05 Completed LIPASE Stat Lab 09/24/22 12:05 Completed Lactic Acid Stat Lab 09/24/22 11:44 Completed Lactic Acid Stat Lab 09/24/22 13:55 Completed UA W/RFX UR CULTURE Stat Lab 09/24/22 11:48 Completed Medication Summary Discontinued Medications Generic Name Dose Route Start Last Admin Trade Name Maxxq PRN Reason Stop Dose Admin Acetaminophen 975 mg 09/24/22 11:44 09/24/22 11:56 Acetaminophen 325 Mg Tablet PO 09/24/22 11:45 975 mg STAT ONE Administration Acetaminophen Confirm 09/24/22 11:49 Acetaminophen 325 Mg Tablet Administered 09/24/22 11:50 Dose 975 mg .ROUTE .STK-MED ONE Famotidine 20 mg 09/24/22 11:44 09/24/22 11:56 Famotidine 20 Mg/1 Vial IV 09/24/22 11:45 20 mg STAT ONE Administration Famotidine Confirm 09/24/22 11:49 Famotidine 20 Mg/1 Vial Administered 09/24/22 11:50 Dose 20 mg IV .STK-MED ONE Sodium Chloride 1,000 mls @ 999 mls/hr 09/24/22 11:44 09/24/22 12:57 Sodium Chloride 0.9% 1000 Ml IV 09/24/22 12:44 Infused .Q1H1M STA Infusion Sodium Chloride Confirm 09/24/22 11:49 Sodium Chloride 0.9% 1000 Ml Administered 09/24/22 11:50 Dose 1,000 mls @ ud .ROUTE .STK-MED ONE Sodium Chloride 1,000 mls @ 999 mls/hr 09/24/22 12:28 09/24/22 13:32 Sodium Chloride 0.9% 1000 Ml IV 09/24/22 13:28 Infused .Q1H1M STA Infusion Sodium Chloride Confirm 09/24/22 12:31 Sodium Chloride 0.9% 1000 Ml Administered 09/24/22 12:32 Dose 1,000 mls @ ud .ROUTE .STK-MED ONE Potassium Chloride 20 meq in 100 mls @ 50 mls/hr 09/24/22 12:42 09/24/22 12:49 Potassium Chloride 20 Meq In Water 100ml IV 09/24/22 14:41 50 mls/hr STAT ONE Administration Potassium Chloride Confirm 09/24/22 12:47 Potassium Chloride 20 Meq In Water 100ml Administered 09/24/22 12:48 Dose 100 mls @ ud IV .STK-MED ONE Sodium Chloride 1,000 mls @ 999 mls/hr 09/24/22 13:32 09/24/22 15:24 Sodium Chloride 0.9% 1000 Ml IV 09/24/22 14:32 Infused .Q1H1M STA Infusion Sodium Chloride Confirm 09/24/22 13:58 Sodium Chloride 0.9% 1000 Ml Administered 09/24/22 13:59 Dose 1,000 mls @ ud .ROUTE .STK-MED ONE Ceftriaxone Sodium/Dextrose 1 g in 50 mls @ 100 mls/hr 09/24/22 14:29 09/24/22 15:15 Rocephin 1 Gm-D5w 50 Ml Bag IV 09/24/22 14:58 Infused STAT STA Infusion Ceftriaxone Sodium/Dextrose Confirm 09/24/22 14:30 Rocephin 1 Gm-D5w 50 Ml Bag Administered 09/24/22 14:31 Dose 1 g in 50 mls @ ud IV .STK-MED ONE Ondansetron HCl 4 mg 09/24/22 11:44 09/24/22 11:56 Ondansetron Hcl 4 Mg/2 Ml Vial IV 09/24/22 11:45 4 mg STAT ONE Administration Ondansetron HCl Confirm 09/24/22 11:49 Ondansetron Hcl 4 Mg/2 Ml Vial Administered 09/24/22 11:50 Dose 4 mg .ROUTE .STK-MED ONE Pantoprazole Sodium 40 mg 09/24/22 11:44 09/24/22 11:56 Pantoprazole 40 Mg Vial IV 09/24/22 11:45 40 mg STAT ONE Administration Pantoprazole Sodium Confirm 09/24/22 11:49 Pantoprazole 40 Mg Vial Administered 09/24/22 11:50 Dose 40 mg IV .STK-MED ONE Potassium Bicarbonate 25 meq 09/24/22 12:42 09/24/22 12:49 Potassium Bicarbonate 25 Meq Tab PO 09/24/22 12:43 25 meq STAT ONE Administration Potassium Bicarbonate Confirm 09/24/22 12:47 Potassium Bicarbonate 25 Meq Tab Administered 09/24/22 12:48 Dose 25 meq .ROUTE .STK-MED ONE Lab/Rad Data: Laboratory Result Diagrams 09/24/22 11:44 09/24/22 12:05 Laboratory Results 09/24/22 09/24/22 09/24/22 Range/Units 14:05 13:55 12:05 WBC (4.0-10.5) x10^3/uL RBC (4.1-5.4) x10^6/uL Hgb (12.0-16.0) g/dL Hct (35-47) % MCV (78-100) fL MCH (26-32) pg MCHC (32-36) g/dL RDW (11.5-14.0) % Plt Count (150-450) x10^3/uL MPV (7.5-11.0) fL Gran % (36.0-66.0) % Immature Gran % (Auto) (0.00-0.4) % Nucleat RBC Rel Count (0.00-0.1) % Eos # (Auto) (0-0.5) x10^3/uL Immature Gran # (Auto) (0.00-0.03) x10^3u/L Absolute Lymphs (auto) (1.0-4.6) x10^3/uL Absolute Monos (auto) (0.0-1.3) x10^3/uL Absolute Nucleated RBC (0.00-0.01) x10^3u/L Lymphocytes % (24.0-44.0) % Monocytes % (0.0-12.0) % Eosinophils % (0.00-5.0) % Basophils % (0.0-0.4) % Absolute Granulocytes (1.4-6.9) x10^3/uL Basophils # (0-0.4) x10^3/uL Sodium (137-145) mmol/L Potassium (3.5-5.1) mmol/L Chloride (98-107) mmol/L Carbon Dioxide (22-30) mmol/L Anion Gap (5-15) MEQ/L BUN (7-17) mg/dL Creatinine (0.52-1.04) mg/dL Estimated GFR ML/MIN Glucose (74-106) mg/dL Lactic Acid 0.9 (0.4-2.0) Calcium (8.4-10.2) mg/dL Total Bilirubin (0.2-1.3) mg/dL AST (14-36) U/L ALT (0-35) U/L Alkaline Phosphatase (38-126) U/L Serum Total Protein (6.3-8.2) g/dL Albumin (3.5-5.0) g/dL Amylase (30-110) U/L Lipase (23-300) U/L Beta HCG, Quant < 2.39 mIU/ml Urine Color (Yellow) Urine Appearance (Clear) Urine pH (4.6-8.0) Ur Specific [place] (1.005-1.030) Urine Protein (Negative) Urine Glucose (UA) (Negative) mg/dL Urine Ketones (Negative) Urine Blood (Negative) Urine Nitrite (Negative) Urine Bilirubin (Negative) Urine Urobilinogen (0.2) mg/dL Ur Leukocyte Esterase (Negative) U Hyaline Cast (Auto) (0-2) /LPF Urine Microscopic RBC (0-5) /HPF Urine Microscopic WBC (0-5) /HPF Ur Epithelial Cells (None Seen) /HPF Urine Bacteria (None Seen) /HPF Urine Culture Reflexed (NO) Influenza Type A Ag NEGATIVE (NEGATIVE) Influenza Type B Ag NEGATIVE (NEGATIVE) RSV (PCR) NEGATIVE (NEGATIVE) SARS-CoV-2 (PCR) NEGATIVE (NEGATIVE) 09/24/22 09/24/22 09/24/22 Range/Units 12:05 11:48 11:44 WBC (4.0-10.5) x10^3/uL RBC (4.1-5.4) x10^6/uL Hgb (12.0-16.0) g/dL Hct (35-47) % MCV (78-100) fL MCH (26-32) pg MCHC (32-36) g/dL RDW (11.5-14.0) % Plt Count (150-450) x10^3/uL MPV (7.5-11.0) fL Gran % (36.0-66.0) % Immature Gran % (Auto) (0.00-0.4) % Nucleat RBC Rel Count (0.00-0.1) % Eos # (Auto) (0-0.5) x10^3/uL Immature Gran # (Auto) (0.00-0.03) x10^3u/L Absolute Lymphs (auto) (1.0-4.6) x10^3/uL Absolute Monos (auto) (0.0-1.3) x10^3/uL Absolute Nucleated RBC (0.00-0.01) x10^3u/L Lymphocytes % (24.0-44.0) % Monocytes % (0.0-12.0) % Eosinophils % (0.00-5.0) % Basophils % (0.0-0.4) % Absolute Granulocytes (1.4-6.9) x10^3/uL Basophils # (0-0.4) x10^3/uL Sodium 136 L (137-145) mmol/L Potassium 2.8 L* (3.5-5.1) mmol/L Chloride 97 L (98-107) mmol/L Carbon Dioxide 24 (22-30) mmol/L Anion Gap 18.4 H (5-15) MEQ/L BUN 19 H (7-17) mg/dL Creatinine 1.27 H (0.52-1.04) mg/dL Estimated GFR 51.8 ML/MIN Glucose 144 H (74-106) mg/dL Lactic Acid 3.7 H (0.4-2.0) Calcium 9.0 (8.4-10.2) mg/dL Total Bilirubin 1.00 (0.2-1.3) mg/dL AST 32 (14-36) U/L ALT 35 (0-35) U/L Alkaline Phosphatase 105 (38-126) U/L Serum Total Protein 9.4 H (6.3-8.2) g/dL Albumin 4.6 (3.5-5.0) g/dL Amylase 79 (30-110) U/L Lipase 93 (23-300) U/L Beta HCG, Quant mIU/ml Urine Color Yellow (Yellow) Urine Appearance Cloudy A (Clear) Urine pH 5.5 (4.6-8.0) Ur Specific [place] 1.010 (1.005-1.030) Urine Protein 30 (Negative) Urine Glucose (UA) Negative (Negative) mg/dL Urine Ketones Negative (Negative) Urine Blood Small A (Negative) Urine Nitrite Negative (Negative) Urine Bilirubin Negative (Negative) Urine Urobilinogen 0.2 (0.2) mg/dL Ur Leukocyte Esterase Small A (Negative) U Hyaline Cast (Auto) 6-10 A (0-2) /LPF Urine Microscopic RBC 0-2 (0-5) /HPF Urine Microscopic WBC 21-50 A (0-5) /HPF Ur Epithelial Cells Moderate A (None Seen) /HPF Urine Bacteria None Seen (None Seen) /HPF Urine Culture Reflexed ORDERED SEPARATELY (NO) Influenza Type A Ag (NEGATIVE) Influenza Type B Ag (NEGATIVE) RSV (PCR) (NEGATIVE) SARS-CoV-2 (PCR) (NEGATIVE) 09/24/22 Range/Units 11:44 WBC 17.8 H (4.0-10.5) x10^3/uL RBC 4.43 (4.1-5.4) x10^6/uL Hgb 13.2 (12.0-16.0) g/dL Hct 40.6 (35-47) % MCV 91.6 (78-100) fL MCH 29.8 (26-32) pg MCHC 32.5 (32-36) g/dL RDW 12.2 (11.5-14.0) % Plt Count 209 (150-450) x10^3/uL MPV 10.0 (7.5-11.0) fL Gran % 78.0 H (36.0-66.0) % Immature Gran % (Auto) 0.4 (0.00-0.4) % Nucleat RBC Rel Count 0.0 (0.00-0.1) % Eos # (Auto) 0 (0-0.5) x10^3/uL Immature Gran # (Auto) 0.07 H (0.00-0.03) x10^3u/L Absolute Lymphs (auto) 1.82 (1.0-4.6) x10^3/uL Absolute Monos (auto) 1.97 H (0.0-1.3) x10^3/uL Absolute Nucleated RBC 0.00 (0.00-0.01) x10^3u/L Lymphocytes % 10.2 L (24.0-44.0) % Monocytes % 11.1 (0.0-12.0) % Eosinophils % 0.0 (0.00-5.0) % Basophils % 0.3 (0.0-0.4) % Absolute Granulocytes 13.89 H (1.4-6.9) x10^3/uL Basophils # 0.06 (0-0.4) x10^3/uL Sodium (137-145) mmol/L Potassium (3.5-5.1) mmol/L Chloride (98-107) mmol/L Carbon Dioxide (22-30) mmol/L Anion Gap (5-15) MEQ/L BUN (7-17) mg/dL Creatinine (0.52-1.04) mg/dL Estimated GFR ML/MIN Glucose (74-106) mg/dL Lactic Acid (0.4-2.0) Calcium (8.4-10.2) mg/dL Total Bilirubin (0.2-1.3) mg/dL AST (14-36) U/L ALT (0-35) U/L Alkaline Phosphatase (38-126) U/L Serum Total Protein (6.3-8.2) g/dL Albumin (3.5-5.0) g/dL Amylase (30-110) U/L Lipase (23-300) U/L Beta HCG, Quant mIU/ml Urine Color (Yellow) Urine Appearance (Clear) Urine pH (4.6-8.0) Ur Specific [place] (1.005-1.030) Urine Protein (Negative) Urine Glucose (UA) (Negative) mg/dL Urine Ketones (Negative) Urine Blood (Negative) Urine Nitrite (Negative) Urine Bilirubin (Negative) Urine Urobilinogen (0.2) mg/dL Ur Leukocyte Esterase (Negative) U Hyaline Cast (Auto) (0-2) /LPF Urine Microscopic RBC (0-5) /HPF Urine Microscopic WBC (0-5) /HPF Ur Epithelial Cells (None Seen) /HPF Urine Bacteria (None Seen) /HPF Urine Culture Reflexed (NO) Influenza Type A Ag (NEGATIVE) Influenza Type B Ag (NEGATIVE) RSV (PCR) (NEGATIVE) SARS-CoV-2 (PCR) (NEGATIVE) - Progress Progress: improved, re-examined Progress Note: 09/24/22 12:27 symptoms have improved with treatment and pt is tolerating PO. 09/24/22 15:25 discussed potential effects of AB on breast feeding and she prefers to stop and pump breasts and discard. 09/24/22 15:31 discussed with pt potential for early pyleonephritis infection or other undetected infections including a post delivery uterus infection not yet detected, that might warrant admission and she wishes to try outpt tx first and followup with her primary DrEly and will return meantime if not improving . She has the capacity to make this choice. 09/24/22 15:35 Counseled pt/family regarding: lab results, diagnosis, need for follow-up Medical Desision Making - Diagnostic Testing Diagnostic test were ordered, analyzed, and reviewed by me: Yes Radiological Interpretation: Reviewed by me - Risk of complications The pt has a mod risk of morbidity or mortality based on: Need for prescription drug management - Departure Departure Disposition: Home Clinical Impression: UTI with vomiting, hypokalemia and dehydration Condition: Good Critical Care Time: No Referrals: CRISTIN PENDLETON MD [Primary Care Provider] - Follow up/PCP as directed Instructions: Fever, Adult (DC), Urinary Tract Infection, Adult (DC), Nausea and Vomiting, Adult (DC), Hypokalemia (DC) Additional Instructions: Although we have found a urinary infection as a likely source for your fever and symptoms - there still could be other infections ( including uterus infections) or a more serious form of urinary infection that might require further hospital evaluation or treatment in the future - so followup with your DrEly ( also to recheck your potassium level) and return meantime if not improving or other concerns, recurring vomiting or any pain or discharge down below. Prescriptions: Ondansetron ODT 4 MG [Zofran Odt 4 mg] 4 mg PO Q6H PRN PRN #10 tablet PRN Reason: Nausea Cephalexin Mh 500 mg [Keflex 500 mg] 500 mg PO Q6H #40 cap
[2022-09-24] MEDS ORDERED: TYLENOL 325 MG PO ONE (11:44)
[2022-09-24] MEDS ORDERED: Sodium Chloride 0.9% 1000 ML 1,000 ML IV STA ×3 (11:44→13:32)
[2022-09-24] MEDS ORDERED: Pepcid 20 MG VIAL IV ONE ×2 (11:44→11:49)
[2022-09-24] MEDS ORDERED: Zofran 4 MG/2 ML VIAL IV ONE (11:44)
[2022-09-24] MEDS ORDERED: PROTONIX 40 MG IV IV ONE ×2 (11:44→11:49)
[2022-09-24] MEDS ORDERED: Zofran 4 MG/2 ML VIAL ONE (11:49)
[2022-09-24] MEDS ORDERED: TYLENOL 325 MG ONE (11:49)
[2022-09-24] MEDS ORDERED: Sodium Chloride 0.9% 1000 ML 1,000 ML ONE ×3 (11:49→13:58)
[2022-09-24 12:13] LABS: Absolute Neutrophil Ct (ANC) 13.89 x10^3/uL (1.4-6.9); BASOPHIL % 0.3 % (0.0-0.4); Basophil (Absolute #) 0.06 x10^3/uL (0-0.4); Eosinophil (Absolute #) 0 x10^3/uL (0-0.5); Hematocrit 40.6 % (35-47); Hemoglobin 13.2 g/dL (12.0-16.0); IMMATURE GRAN # 0.07 x10^3u/L (0.00-0.03); IMMATURE GRAN % 0.4 % (0.00-0.4); Lymphocyte (Absolute #) 1.82 x10^3/uL (1.0-4.6); Lymphocytes % 10.2 % (24.0-44.0); Mean Cell Volume 91.6 fL (78-100); Mean Corpuscular Hemoglobin 29.8 pg (26-32); Mean Corpuscular Hgb Concent. 32.5 g/dL (32-36); Monocyte (Absolute #) 1.97 x10^3/uL (0.0-1.3); Monocytes % 11.1 % (0.0-12.0); Platelet Count 209 x10^3/uL (150-450); Red Blood Count 4.43 x10^6/uL (4.1-5.4); Red Cell Distribution Width 12.2 % (11.5-14.0); White Blood Count 17.8 x10^3/uL (4.0-10.5)
[2022-09-24 12:33] LABS: ALBUMIN 4.6 g/dL (3.5-5.0); ANION GAP 18.4 MEQ/L (5-15); Creatinine 1 1.27 mg/dL (0.52-1.04); EST GLOMERULAR FILTRATION RATE 51.8 ML/MIN; Total Protein 9.4 g/dL (6.3-8.2)
[2022-09-24 12:36] LABS: Potassium 2.8 mmol/L (3.5-5.1)
[2022-09-24] MEDS ORDERED: K-LYTE PO ONE (12:42)
[2022-09-24] MEDS ORDERED: POTASSIUM CHLORIDE 20 mEq IN WATER 100ML 20 MEQ/100 ML BAG IV ONE (12:42)
[2022-09-24] MEDS ORDERED: POTASSIUM CHLORIDE 20 mEq IN WATER 100ML 100 ML IV ONE (12:47)
[2022-09-24] MEDS ORDERED: K-LYTE ONE (12:47)
[2022-09-24 14:11] LABS: ADD URINE CULTURE? ORDERED SEPARATELY (NO); Appearance Cloudy (Clear); Bacteria None Seen /HPF (None Seen); Bilirubin Negative (Negative); Blood Small (Negative); Epithelial Cells Moderate /HPF (None Seen); Glucose, Urine Negative (Negative); Ketones Negative (Negative); Leukocyte Esterase Small (Negative); Nitrite Negative (Negative); Ph 5.5 (4.6-8.0); Protein,Urine Dip 30 (Negative); RBC 0-2 /HPF (0-5); Urobilinogen 0.2 mg/dL (0.2); WBC 21-50 /HPF (0-5)
[2022-09-24] MEDS ORDERED: ROCEPHIN 1 Gm-D5w 50 ml Bag** 1 G/50 ML IVPB IV STA (14:29)
[2022-09-24] MEDS ORDERED: ROCEPHIN 1 Gm-D5w 50 ml Bag** 1 G/50 ML IVPB IV ONE (14:30)
[2022-09-24 14:43] LABS: INFLUENZA A NEGATIVE (NEGATIVE); INFLUENZA B NEGATIVE (NEGATIVE); RESPIRATORY SYNCTIAL VIRUS NEGATIVE (NEGATIVE); SARS-CoV-2 Xpert Express NEGATIVE (NEGATIVE)
[2022-09-24 15:25] VITALS: PULSE 80
[2022-09-24 15:33] VITALS: BP 90/50
[2022-09-24 15:35] VITALS: O2SAT 98
== END 2022-09-24 15:41 | disposition home or self-care (01) ==
LOC: ED 11:14
DX: N39.0 Urinary tract infection, site not specified (principal); R11.2 Nausea with vomiting, unspecified; E87.6 Hypokalemia; E86.0 Dehydration; R50.9 Fever, unspecified; R51.9 Headache, unspecified
CPT/HCPCS: 0241U; 36000; 36415; 80053; 81001; 82150; 83605; 83690; 84702; 85025; 87040; 87086; 96360; 96365; 96367; 96374; 96375; 99284; J0696; J2405; J3480; A9270-GY